=== PATIENT | female | born 1940 | race Caucasian/White ===

== ENCOUNTER 2017-06-10 08:02 | Outpatient (CLI) | payer MEDICARE ==
--- NOTE | 2017-06-10 15:13 | NM ---
NUCLEAR MEDICINE PARATHYROID SCAN NUCLEAR MEDICINE PARATHYROID SPECT-CT FUSION: Date: 06/10/17 HISTORY: 77-year-old female with hyperparathyroidism. TECHNIQUE: 23.4 mCi technetium-99m sestamibi injected IV. Planar scintigraphic images obtained immediately and at 1 hour delay, in the anterior, right anterio r oblique, and left anterior oblique, views. Noncontrast CT also performed from skull base to upper mediastinum. Coronal, sagittal, and axial CT-SPECT perfusion performed. FINDINGS: There is an asymmetrical focus of sestamibi uptake noted on the immediate scintigraphic images, the 1 hour delayed scintigraphic images, and also on the SPECT-CT fusion images, at the right anterior p aratracheal region, inferior to the right lobe of the thyroid gland. It is difficult to identify a d efinite soft tissue density nodule on the CT images, but that could be because the nodule is very sm all and the CT spacial resolution is intrinsically low for this type of study. There is no other goo d candidate for parathyroid adenoma. IMPRESSION: A focus of sestamibi localization in the right anterior paratracheal region inferior to the right lo be of the thyroid gland, is a moderately good candidate for a parathyroid adenoma. POS: DESTINEE
== END 2017-06-10 08:03 | disposition home or self-care (01) ==
LOC: NM 08:02
PROVIDERS: ATTEND Family Medicine
DX: E21.3 Hyperparathyroidism, unspecified (principal); D35.1 Benign neoplasm of parathyroid gland
CPT/HCPCS: 78072; A9500

== ENCOUNTER 2017-07-04 14:39 | Day surgery (SDC) | payer MEDICARE ==
[2017-07-03 14:50] VITALS: BMI 37.4
[2017-07-04] MEDS ORDERED: Lidocaine 1% w/Epinephrine 1:200K 30 ML VIAL ONE (15:08)
[2017-07-04] MEDS ORDERED: Bacitracin Zinc Ointment 30 gm TUBE ONE (15:09)
[2017-07-04 15:33] LABS: #Basophils 0.1 thou/uL (0.0-0.2); #Eosinphils 0.3 thou/uL (0.0-0.7); #Lymphocytes 2.7 thou/uL (1.20-3.40); #Monocytes 0.9 thou/uL (0.11-0.59); #Neutrophils 7.2 thou/uL (1.40-6.50); %Eosinophils 2.5 % (0.0-10.0); %Lymphocytes 24.3 % (21.0-51.0); %Monocytes 8.1 % (0.0-10.0); Hematocrit 48.2 % (36.0-47.0); Mean Platelet Volume 8.8 fL (7.4-10.4); Red Blood Cell (RBC) Count 4.94 mill/uL (4.20-5.40); White Blood Cell (WBC) Count 11.3 thou/uL (4.8-10.8)
[2017-07-04] MEDS ORDERED: Fentanyl 100 MCG/2 ML VIAL ONE ×2 (15:42→17:22)
[2017-07-04 15:47] LABS: Anion Gap 16 mmol/L (10-20); BUN (Urea Nitrogen) 18 mg/dL (9.8-20.1); Calc. Creatinine Clearance 85 mL/min (70-130); Calcium 10.8 mg/dL (7.8-10.44); Carbon Dioxide 25 mmol/L (23-31); Chloride 103 mmol/L (98-107); Estimated GFR-MDRD 65
[2017-07-04] MEDS ORDERED: Succinylcholine Chloride 20 MG/ML 10 ml SYRINGE FS ONE (15:48)
[2017-07-04] MEDS ORDERED: Lidocaine 2% PF 10 ML AMP (For Epidural Use) ONE (15:48)
[2017-07-04] MEDS ORDERED: ePHEDrine/0.9% NaCl/PF SYRINGE 50 mg/10 ml ONE (15:48)
[2017-07-04] MEDS ORDERED: Propofol 200 MG/20 ML VIAL ONE ×2 (15:48)
[2017-07-04] MEDS ORDERED: PHENYLEPHRINE-NS 100 MCG/ML 10 ML SYRINGE ONE (15:48)
[2017-07-04] MEDS ORDERED: Dexamethasone 20 MG/5 ML VIAL ONE (15:48)
[2017-07-04] MEDS ORDERED: Phenylephrine 10 MG/NS 250 ML 0 ML ONE (16:03)
[2017-07-04] MEDS ORDERED: Phenylephrine 10 MG/NS 250 ML 250 ML ONE (16:04)
[2017-07-04] MEDS ORDERED: HYDROcodone/Acetaminophen 5/325 mg Tablet ONE (18:57)
--- NOTE | 2017-07-04 21:56 | OP ---
PREOPERATIVE DIAGNOSES: Primary hyperparathyroidism. POSTOPERATIVE DIAGNOSES: Primary hyperparathyroidism. PROCEDURE PERFORMED: Right neck exploration with excision of parathyroid adenoma. PROCEDURE IN DETAIL: After consent was obtained, the patient was identified, brought to the operatin g room and placed on the operating table in supine position. General endotracheal anesthesia was obt ained with a nerve integrity monitor and the patient was positioned for surgery. The neck was extend ed and prepped and draped and infiltrated with 1% lidocaine and 1:100,000 epinephrine into a natural skin crease in the lower neck. We then made an incision through the skin and subcutaneous tissues do wn through the platysma and subplatysmal flaps were elevated. Bleeding points were identified and ca uterized and 2 blood vessels were suture ligated. We then dissected in the midline and we were able to separate the strap muscles. Then we encountered a large anterior thyroid vessel which was suture ligated. This then allowed for identification of thyroid and removal of the strap muscles. We crystal nued dissection laterally around the capsule until and retracted the great vessels and muscles while mobilizing the thyroid medially. This then allowed for easy identification of parathyroid adenoma wh ich was removed in a hemostatic fashion, sent for histologic evaluation and found to be consistent wi th parathyroid adenoma and consistent with the one which we identified with preoperative imaging. He mostasis was then obtained. Fibrillar Surgicel put in the deep aspect of the wound. The wound was c losed in layers with the platysma, reapproximated followed by the subcutaneous tissues and skin. Mike rile dressing was applied. The patient was awakened and taken to recovery room where she remained in stable condition prior to discharge home.
--- NOTE | 2017-07-06 10:01 | EKG ---
Test Reason : Blood Pressure : / mmHG Vent. Rate : 070 BPM Atrial Rate : 070 BPM P-R Int : 140 ms QRS Dur : 122 ms QT Int : 430 ms P-R-T Axes : -27 098 -64 degrees QTc Int : 464 ms Electronic ventricular pacemaker When compared with ECG of 31-MAR-2016 06:46, Vent. rate has decreased BY 5 BPM Confirmed by SHALA BATISTA, DR. Sumner ([id number]) on 07/06/2017 10:01:04 AM Referred By: SHILO Confirmed By:DR. Taisha LAST MD
== END 2017-07-04 19:35 | disposition home or self-care (01) ==
LOC: SDC 14:39
PROVIDERS: ATTEND Specialist
PROC: 0GTN0ZZ Resection of Right Inferior Parathyroid Gland, Open Approach (ICD-10-PCS; principal; 2017-07-04)
DX: D35.1 Benign neoplasm of parathyroid gland (principal); Z88.8 Allergy status to other drugs, medicaments and biological substances; Z90.710 Acquired absence of both cervix and uterus; Z90.49 Acquired absence of other specified parts of digestive tract; Z96.653 Presence of artificial knee joint, bilateral; Z98.890 Other specified postprocedural states
CPT/HCPCS: 80048; 85025; 88305; 88331; 88334; 93005; 93010; 96374; J1100; J2001; J2704; J3010

== ENCOUNTER 2017-08-29 08:00 | Outpatient (CLI) | payer MEDICARE ==
[2017-08-29] MEDS ORDERED: Iopamidol 370 76% 100 ML VIAL ONE (11:56)
== END 2017-08-29 08:01 | disposition home or self-care (01) ==
LOC: BICCT 08:00
PROVIDERS: ATTEND Specialist
DX: E21.3 Hyperparathyroidism, unspecified (principal)
CPT/HCPCS: 70492

== ENCOUNTER 2017-10-01 07:25 | Outpatient (CLI) | payer MEDICARE ==
--- NOTE | 2017-10-01 12:22 | NM ---
RADIONUCLIDE PARATHYROID SCAN WITH SPECT CT: HISTORY: The patient had surgery for a right-sided parathyroid adenoma in June 2017. The pt returns with elevated calcium levels and elevated parathyroid hormone levels. RADIOPHARMACEUTICAL: 27 mCi Technetium 99m-sestamibi injected intravenously. FINDINGS: There is physiologic activity in the salivary glands and the thyroid gland. No abnormal foci of pers istently increased uptake is seen in the neck or chest to suggest parathyroid adenoma. IMPRESSION: No scintigraphic evidence of parathyroid adenoma. POS: DESTINEE
== END 2017-10-01 07:26 | disposition home or self-care (01) ==
LOC: NM 07:25
PROVIDERS: ATTEND Specialist
DX: D35.1 Benign neoplasm of parathyroid gland (principal)
CPT/HCPCS: 78072; A9500

== ENCOUNTER 2017-12-04 09:39 | Outpatient (CLI) | payer MEDICARE ==
--- NOTE | 2017-12-10 12:22 | PFT ---
PATIENT HISTORY: HEIGHT: 65 IN WEIGHT:222 SMOKER: YES HOW LONG: PACKS PER DAY PRODUCTIVE COUGH: OCC LUNG DISEASE: PHYSICIAN INTERPRETATION FINAL REPORT:Director Trial comments patient and good effort and cooperation FVC 1.69 (62%), FEV1 of 1.45 (77%), FEV1/FVC 0.86. TLC 3.09 (64%), RV 1.35 (65%). Diffusion 11.06 (65%). There is a symmetric reduction to both the FEV1 and the FVC, suggestive of a restrictive profile. There is a near significant improvement in the FEV1 following bronchodilator. Total lung capacity and residual volume are mildly reduced. Diffusion capacity is mildly impaired, but easily corrects for alveolar ventilation. IMPRESSION: These pulmonary function studies are most consistent with moderate restrictive lung disease with near significant improvement following bronchodilator, and minimal impairment and gas exchange. Body habitus, in part, may be contributing to the volume restriction. Clinical and radiographic correlation should be considered for interstitial process. No priors for comparison. Director Trial: LETY Vocational Nurse Lvn: LETY BAUTISTA
== END 2017-12-04 09:40 | disposition home or self-care (01) ==
LOC: CP 09:39
PROVIDERS: ATTEND Family Medicine
DX: R09.02 Hypoxemia (principal)
CPT/HCPCS: 94060; 94727; 94729

== ENCOUNTER 2018-06-05 13:16 | Emergency (ER) | payer MEDICARE ==
[2018-06-05] MEDS ORDERED: Lidocaine 1% w/Epinephrine 1:100K 20 ML VIAL ONE (14:01)
[2018-06-05] MEDS ORDERED: Bacitracin Zinc 1 Packet ONE (14:20)
== END 2018-06-05 15:02 | disposition home or self-care (01) ==
LOC: ERS 13:16
DX: L02.414 Cutaneous abscess of left upper limb (principal); L03.114 Cellulitis of left upper limb; F32.9 Major depressive disorder, single episode, unspecified; E78.5 Hyperlipidemia, unspecified; E03.9 Hypothyroidism, unspecified; I50.9 Heart failure, unspecified; Z79.899 Other long term (current) drug therapy; Z79.891 Long term (current) use of opiate analgesic
CPT/HCPCS: 23930; J2001

== ENCOUNTER 2019-02-06 13:05 | Outpatient (CLI) | payer MEDICARE ==
[~2019-02-06 13:05] MED LIST: Iopamidol 370 76% 100 ML VIAL ONE
--- NOTE | 2019-02-06 15:39 | CT ---
CT NECK WITH AND WITHOUT CONTRAST: (parathyroid protocol) DATE: 02/06/2019. HISTORY: An 79-year-old female with recurrent hyperparathyroidism after surgical resection of right parathyroi d adenoma in June 2017. TECHNIQUE: Precontrast scan, 25 second postcontrast scan, and 65 second postcontrast scan, performed from a few centimeters inferior to the javed to the skull base. Coronal and sagittal reconstructions. FINDINGS: The images are degraded by patient breathing motion. Also, the patient's positioning is suboptimal, because of patient's condition. There is a 1.2 x 0.8 cm noncalcified pulmonary nodule located in the superior segment of the right lo wer lobe. This was not present at the lung bases as seen on CT abdomen and pelvis of 10/02/2011 (this should not be mistaken for the calcified granuloma abutting the posterior pleural surface in the rig ht lower lobe, which is visualized on both the 2011 [address] and the current CT at the same level as the ne w nodule). There is cardiomegaly. As mentioned on the 08/29/[address] of the neck, there is m ildly prominent soft tissue density material at the left anterior paratracheal region which enhances heterogeneously strongly in a lace-like manner (probably multiple prominent blood vessels) on the 25 second postcontrast scan. This has not significantly changed in size compared to 08/29/2017, and is a poor candidate for parathyroid adenoma. Again, it is noted that the small amount of bilateral paratracheal tissue that are present in the exp ected location of the thyroid gland, is not high in density on the noncontrast scan (little or no int rinsic iodine content). It is uncertain whether this represents an atrophic thyroid gland or not. T he previously mentioned tiny nubbin of enhancement abutting the left posterolateral aspect of the cri copharyngeus/pharyngeal constrictor complex, is again visualized. This has the appearance of small b lood vessels. 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 Left subclavian AICD. Cardiomegaly. Ectasia, tortuosity, of great vessels arisin g from aortic arch. IMPRESSION: 1. A new right lower lobe pulmonary nodule. Recommend further evaluation with PET scan to rule out malignancy. 2. No good candidate for parathyroid adenoma. 3. The findings in the neck are very similar to those of 08/29/2017. Please see that prior report. POS: TPC
== END 2019-02-06 13:06 | disposition home or self-care (01) ==
LOC: BICCT 13:05
PROVIDERS: ATTEND Specialist
DX: D35.1 Benign neoplasm of parathyroid gland (principal); R91.1 Solitary pulmonary nodule
CPT/HCPCS: 70492; 82565; Q9967

== ENCOUNTER 2019-04-10 18:58 | Emergency (ER) | payer MEDICARE ==
[2019-04-10 19:31] LABS: #Basophils 0.1 thou/uL (0.0-0.2); #Eosinphils 0.2 thou/uL (0.0-0.7); #Lymphocytes 2.5 thou/uL (1.20-3.40); #Neutrophils 7.7 thou/uL (1.40-6.50); %Basophils 1.1 % (0.0-1.0); %Eosinophils 1.6 % (0.0-10.0); %Lymphocytes 21.4 % (21.0-51.0); %Monocytes 8.5 % (0.0-10.0); %Neutrophils 67.4 % (42.0-75.0); Hemoglobin 15.7 g/dL (12.0-16.0); Mean Corpuscular Volume 94.1 fL (78.0-98.0); Mean Platelet Volume 8.7 fL (7.4-10.4); Platelet Count 260 thou/uL (130-400); RBC Distribution Width 12.4 % (11.5-14.5); Red Blood Cell (RBC) Count 5.05 mill/uL (4.20-5.40); White Blood Cell (WBC) Count 11.4 thou/uL (4.8-10.8)
[2019-04-10 19:51] LABS: ALT (SGPT) 13 U/L (8-55); AST (SGOT) 20 U/L (5-34); Albumin 4.1 g/dL (3.4-4.8); Alkaline Phosphatase 77 U/L (40-150); Anion Gap 15 mmol/L (10-20); BUN (Urea Nitrogen) 11 mg/dL (9.8-20.1); Bilirubin, Total 0.6 mg/dL (0.2-1.2); Calc. Creatinine Clearance 0 mL/min (70-130); Calcium 9.3 mg/dL (7.8-10.44); Carbon Dioxide 24 mmol/L (23-31); Chloride 95 mmol/L (98-107); Estimated GFR-MDRD 62; Globulin 2.6 g/dL (2.4-3.5); Glucose 114 mg/dL (83-110); Potassium 4.3 mmol/L (3.5-5.1); Protein, Total 6.7 g/dL (6.0-8.3); Sodium 130 mmol/L (136-145)
--- NOTE | 2019-04-10 20:29 | RAD ---
EXAM: CHEST ONE VIEW: 04/10/19 HISTORY: Fever. Decreased appetite. COMPARISON: 09/30/17. FINDINGS: Stable left sided transvenous defibrillator. Enlarged cardiac silhouette and atherosclerosis of the a lisa. Lung volumes are diminished, likely due to poor inspiratory effort. Chronic changes, without co nsolidation or mass. No pneumothorax or osseous abnormalities. IMPRESSION: No acute cardiopulmonary process. POS: PPP
[2019-04-10 20:55] LABS: Bilirubin Negative (Negative); Blood, Urine Negative (Negative); Clarity Turbid (Clear); Glucose, Urine (Dipstick) Normal (Negative); Leukocyte 500 Leu/uL (Negative); Mucous/LPF Rare LPF (<2+); Nitrite Negative (Negative); Protein, Urine (Dipstick) 10 mg/dL (Neg-Trace); RBC/HPF 0-3 HPF (0-3); WBC/HPF Greater than 50 HPF (0-3)
[2019-04-10 21:01] LABS: Bacteria/HPF 2+ HPF (None Seen)
[2019-04-10 21:05] LABS: Free T4 (Free Thyroxine) 1.35 ng/dL (0.70-1.48); Thyroid Stimulating Hormone 0.093 uIU/mL (0.35-4.94)
[2019-04-10] MEDS ORDERED: cefTRIAXone\\ROCEPHIN 2 GM VIAL ONE (21:54)
== END 2019-04-10 21:55 | disposition home or self-care (01) ==
LOC: ERS 18:58
DX: N39.0 Urinary tract infection, site not specified (principal); I50.9 Heart failure, unspecified; E03.9 Hypothyroidism, unspecified; E78.5 Hyperlipidemia, unspecified; E78.00 Pure hypercholesterolemia, unspecified; F32.9 Major depressive disorder, single episode, unspecified; Z79.899 Other long term (current) drug therapy
CPT/HCPCS: 36415; 71045; 80053; 81003; 81015; 83605; 83735; 84439; 84443; 85025; 87040; 87086; 87149; 93005; 96361; 96365; J0696

== ENCOUNTER 2019-04-18 09:03 | Inpatient (IN) | payer MEDICARE ==
--- NOTE | 2019-04-18 10:06 | RAD ---
Exam: Chest one view portable: HISTORY: Cough COMPARISON: 04/10/2019 FINDINGS: Left ICD. Minimal cardiomegaly. 0.9 cm diameter nodular density overlying the right mid and lower leo g zone not seen on old studies dating back to 2016, possibly a pulmonary nodule, consider nonemergent follow-up chest CT scan for further assessment. IMPRESSION: 0.9 cm diameter possible nodule in the right mid and lower lung zone. Follow-up as above. Stable cardiomegaly. Stable atherosclerosis of the aorta. Left transvenous pacemaker-defibrillator. Code lung nodule
[2019-04-18 10:15] LABS: #Basophils 0.1 thou/uL (0.0-0.2); #Eosinphils 0.1 thou/uL (0.0-0.7); #Lymphocytes 2.2 thou/uL (1.20-3.40); #Monocytes 0.9 thou/uL (0.11-0.59); #Neutrophils 5.2 thou/uL (1.40-6.50); %Basophils 0.8 % (0.0-1.0); %Eosinophils 1.2 % (0.0-10.0); %Lymphocytes 25.8 % (21.0-51.0); %Monocytes 10.9 % (0.0-10.0); %Neutrophils 61.3 % (42.0-75.0); Hemoglobin 15.3 g/dL (12.0-16.0); Mean Corpuscular Hemoglobin 31.2 pg (27.0-31.0); Mean Corpuscular Volume 94.5 fL (78.0-98.0); Mean Platelet Volume 8.8 fL (7.4-10.4); Platelet Count 204 thou/uL (130-400); RBC Distribution Width 12.2 % (11.5-14.5); Red Blood Cell (RBC) Count 4.92 mill/uL (4.20-5.40); White Blood Cell (WBC) Count 8.5 thou/uL (4.8-10.8)
[2019-04-18 10:36] LABS: ALT (SGPT) 10 U/L (8-55); AST (SGOT) 15 U/L (5-34); Albumin 3.9 g/dL (3.4-4.8); Alkaline Phosphatase 62 U/L (40-150); Anion Gap 13 mmol/L (10-20); BUN (Urea Nitrogen) 12 mg/dL (9.8-20.1); Bilirubin, Total 0.6 mg/dL (0.2-1.2); Calc. Creatinine Clearance 0 mL/min (70-130); Calcium 8.8 mg/dL (7.8-10.44); Carbon Dioxide 24 mmol/L (23-31); Chloride 98 mmol/L (98-107); Estimated GFR-MDRD 80; Globulin 2.2 g/dL (2.4-3.5); Glucose 90 mg/dL (83-110); Potassium 3.7 mmol/L (3.5-5.1); Protein, Total 6.1 g/dL (6.0-8.3); Sodium 131 mmol/L (136-145)
[2019-04-18 10:41] LABS: Bilirubin Negative (Negative); Blood, Urine Negative (Negative); Clarity Clear (Clear); Glucose, Urine (Dipstick) Normal (Negative); Leukocyte 250 Leu/uL (Negative); Nitrite Negative (Negative); Protein, Urine (Dipstick) Negative (Neg-Trace); Transitional Epithelial 0-3 HPF (None Seen); Urobilinogen 3 mg/dL (Less than 2)
[2019-04-18 10:42] LABS: Bacteria/HPF 1+ HPF (None Seen)
[2019-04-18] MEDS ORDERED: Ondansetron PF 4 MG/2 ML Vial ONE (11:32)
[2019-04-18 15:12] VITALS: BMI 35.9
[2019-04-18] MEDS ORDERED: Acetaminophen 325 MG TAB PO PRN (15:15)
[2019-04-18] MEDS ORDERED: Ondansetron PF 4 MG/2 ML Vial IVP PRN (15:15)
[2019-04-18] MEDS ORDERED: Ondansetron ODT 4 MG TAB SL PRN (15:15)
--- NOTE | 2019-04-18 17:30 | CON ---
DATE OF CONSULTATION: HISTORY OF PRESENT ILLNESS: An 79-year-old woman, who presents for evaluation of sepsis. The patient has a history of a cardiomyopathy. She has previously had placement of automatic implantable cardiac defibrillator. The patient was in her usual state of health, but recently developed fevers and chills. She was diagnosed with urinary tract infection. The patient presents with recurrent fever and chills. PAST MEDICAL HISTORY: 1. Cardiomyopathy. 2. Restrictive lung disease. 3. GE reflux. 4. Thyroid disorder. PAST SURGICAL HISTORY: Hysterectomy, venous stripping, appendectomy, and knee surgery. MEDICATIONS: See nursing list. ALLERGIES: FOSAMAX. SOCIAL HISTORY: Nonsmoker. FAMILY HISTORY: No strong family history of heart disease. PHYSICAL EXAMINATION: GENERAL: This is a well developed woman, in no acute distress. VITAL SIGNS: Blood pressure 145/80, heart rate was 80, temperature is 98. NECK: No jugular venous distention. LUNGS: Clear to auscultation. HEART: Regular rate and rhythm. Normal S1 and S2 with a 2/6 systolic murmur. ABDOMEN: Nondistended. EXTREMITIES: Showed no edema. LABORATORY RESULTS: White blood cell count 8.5, hemoglobin 15.3, hematocrit 46.5, platelets 204. Sodium is 131, potassium 3.7, chloride 98, bicarbonate 24, BUN 12, creatinine 0.7. Urinalysis revealed 11 to 20 white blood cell count per high-powered field with positive leukocyte esterase. Her urine culture revealed Streptococcus. The blood culture revealed gram-negative Staphylococcus. IMPRESSION: 1. Sepsis secondary to Staphylococcus. 2. History of AICD placement. 3. History of cardiomyopathy. 4. Thyroid disorder. This patient has gram-negative sepsis due to Staphylococcus. A transesophageal echocardiogram would be obtained to see if there is evidence of infection on the defibrillator or on the cardiac valves. PLAN: 1. Proceed with DANIELA. 2. Continue IV antibiotics per Infectious Disease. Job ID: [id number] [facility]
[2019-04-18] MEDS: Pregabalin 75 MG CAP PO SCH (22:10)
[2019-04-18] MEDS: Rosuvastatin 20 MG TAB PO SCH (22:10)
[2019-04-18] MEDS: HYDROcodone/Acetaminophen 10/325 mg Tablet PO PRN (22:11)
[2019-04-18] MEDS: Carvedilol 3.125 MG TAB PO SCH (22:11)
--- NOTE | 2019-04-19 00:38 | HP ---
CHIEF COMPLAINT: Fever and weakness. HISTORY OF PRESENT ILLNESS: This is an 79-year-old female patient with a history of chronic back pain, COPD, cardiomyopathy, chronic pain, status post AICD placement in 2014, and status post parathyroidectomy in 2017, who presents to the emergency department with complaints of persistent fever, chills, and weakness. The patient first presented to the emergency department 3-4 days ago with fevers and chills. She was treated for urinary tract infection with oral Keflex. She seemed to improve somewhat, but then continued to have on and off fevers and chills. The daughter states that she developed some nausea and vomiting today and increased weakness, re-presented back to the emergency department for further evaluation. Upon review of her results from the emergency room visit on the , she was found to have 2 out of 2 positive blood cultures with coag-negative staphylococcus with presumptive corynebacterium species. It was thought to be a contaminant, which is most usual. ER physician spoke with Dr. Mckeon, who is suspicious for possible endocarditis due to her indwelling hardware with her AICD. She is now being admitted for further evaluation including a transesophageal echocardiogram to rule out endocarditis. She has continued to have on and off fevers, but feeling much better now with better fever control. PAST MEDICAL HISTORY: Again, chronic back pain, status post herniated disk of L2-L3, she is followed by Dr. Matthews; chronic arthritis; hypothyroidism; history of hyperparathyroidism; COPD; osteopenia; vitamin D deficiency; ischemic cardiomyopathy with ejection fraction of 20% to 25%; history of paroxysmal atrial fibrillation; stage 3 chronic renal failure. MEDICATIONS: Include; 1. [place] 10/325 b.i.d. p.r.n. severe pain. 2. Lyrica 150 mg at bedtime. 3. Iron sulfate 325 daily. 4. Potassium daily. 5. Albuterol p.r.n. 6. Celebrex 200 mg once a day p.r.n. 7. Symbicort 160/4.5 twice a day. 8. Protonix 40 mg daily. 9. Citalopram 40 mg daily. 10. Carvedilol 3.125 mg b.i.d. 11. Synthroid 150 mcg daily. 12. Crestor 20 mg daily. 13. Vitamin D3, 2000 units daily. ALLERGIES: TO FOSAMAX. IMMUNIZATIONS: Up to date with Prevnar in 2014 and Pneumovax in 2017. Last flu shot was 2018. PAST SURGICAL HISTORY: Parathyroidectomy in June 2017, vaginal hysterectomy in 1969, cholecystectomy in 1987, small bowel bypass and gastrectomy in 1996, colonoscopy in 2005, right knee replacement in 2007, EGD in 2011, AICD placement in 2014. FAMILY HISTORY: Father with cancer. Mother with cancer. No heart disease. No diabetes. SOCIAL HISTORY: She is single. She lives with her daughter at home. No smoking. No alcohol. No other drug use. REVIEW OF SYSTEMS: As per the history of present illness. CONSTITUTIONAL: She denies any upper respiratory symptoms. Positive fevers on and off. Denies headache or visual or hearing changes. CARDIAC: Denies chest pain, shortness of breath, or palpitations. PULMONARY: Denies cough or shortness of breath. GI: Some nausea and vomiting. No diarrhea. Denies melena or hematochezia. : Positive recent urinary tract infection, but does not have any dysuria or hematuria. NEUROLOGIC: Positive weakness. No seizures or syncope. MUSCULOSKELETAL: Chronic pain. She walks with a walker. She does have assistance at home from her daughter. PHYSICAL EXAMINATION: VITAL SIGNS: Temperature 98, pulse of 80, respirations 20, blood pressure 145/ 80, pulse ox is 94% on room air. GENERAL: She is obese, in no acute distress. SKIN: No rashes seen, chronic skin changes; no splinter hemorrhages of nails HEENT: Mucosa is moist. NECK: Supple. No JVD, adenopathy, or bruits. HEART: Regular rate and rhythm with 2/6 systolic ejection murmur, loudest at the left sternal border. LUNGS: Clear bilaterally. ABDOMEN: Obese, soft, nontender, and nondistended. No hepatosplenomegaly. No CVA tenderness. EXTREMITIES: Trace edema. 2+ peripheral pulses bilaterally. LABORATORY DATA: White blood cell count 8.5, hemoglobin and hematocrit 15.3 and 46.5, platelets 204. Sodium 131, potassium 3.7, chloride 98, CO2 of 24, BUN and creatinine 12 and 0.70. Serum glucose is 70. AST and ALT are normal. Albumin is 3.9. Urinalysis positive for epithelial cells, positive leukocytes, positive red blood cells and white blood cells, 1+ bacteriuria. Chest x-ray showed no active disease, left ICD is noted, minimal cardiomegaly, 0.9 cm nodular density in the right mid lower lung zone, possible pulmonary nodule. ASSESSMENT AND PLAN: This is an 79-year-old female patient with multiple medical problems, now with persistent fever, positive blood cultures, presumed to be contaminant, but with the placement of her cardiac hardware, may be suspicious for endocarditis. 1. Rule out endocarditis. Dr. Mello has seen the patient, has planned for a DANIELA when able. 2. Fevers with coag-negative Staph bacteremia, has been treated with oral antibiotics. Await Dr. Mckeon evaluation for further IV antibiotics now. We are awaiting for the DANIELA to result. 3. History of cardiomyopathy. We will continue her outpatient medications for blood pressure control. 4. Hypothyroidism. Continue her thyroid replacement. 5. Gastrointestinal protection. We will continue proton pump inhibitor. 6. Deep vein thrombosis prophylaxis with subcu Lovenox. 7. Code status. Patient and daughter desire her to be full code. Job ID: [id number] [facility]
[2019-04-19 05:05] LABS: #Basophils 0.1 thou/uL (0.0-0.2); #Eosinphils 0.1 thou/uL (0.0-0.7); #Lymphocytes 1.8 thou/uL (1.20-3.40); #Monocytes 0.8 thou/uL (0.11-0.59); #Neutrophils 7.8 thou/uL (1.40-6.50); %Basophils 0.8 % (0.0-1.0); %Eosinophils 1.1 % (0.0-10.0); %Lymphocytes 16.7 % (21.0-51.0); %Monocytes 7.8 % (0.0-10.0); %Neutrophils 73.6 % (42.0-75.0); Hemoglobin 15.3 g/dL (12.0-16.0); Mean Corpuscular HGB CONC 32.7 g/dL (32.0-36.0); Mean Corpuscular Hemoglobin 31.2 pg (27.0-31.0); Mean Corpuscular Volume 95.4 fL (78.0-98.0); Platelet Count 197 thou/uL (130-400); RBC Distribution Width 12.4 % (11.5-14.5); Red Blood Cell (RBC) Count 4.91 mill/uL (4.20-5.40); White Blood Cell (WBC) Count 10.6 thou/uL (4.8-10.8)
[2019-04-19 05:30] LABS: Anion Gap 14 mmol/L (10-20); BUN (Urea Nitrogen) 14 mg/dL (9.8-20.1); Calc. Creatinine Clearance 88 mL/min (70-130); Calcium 9.2 mg/dL (7.8-10.44); Carbon Dioxide 25 mmol/L (23-31); Chloride 99 mmol/L (98-107); Estimated GFR-MDRD 74; Glucose 109 mg/dL (83-110); Potassium 3.7 mmol/L (3.5-5.1); Sodium 134 mmol/L (136-145)
[2019-04-19] MEDS: Levothyroxine Sodium 125 MCG TAB PO SCH (06:22)
[2019-04-19] MEDS ORDERED: Ondansetron ORAL SOLN. 4 MG/5 ML UDCUP PO PRN (07:46)
[2019-04-19] MEDS ORDERED: Acetaminophen 325 MG TAB PO PRN (07:46)
--- NOTE | 2019-04-19 08:38 | PRG ---
DATE OF SERVICE: 04/19/2019 SUBJECTIVE: The patient states that she is feeling some better. She has had no fever since being in. Denies chest pain. Denies nausea or vomiting. Continues to feel weak, but no fevers or chills. Pain is controlled. OBJECTIVE: VITAL SIGNS: Temperature 97.9, pulse 78, respirations 16, blood pressure 115/82, pulse ox 93% on room air. GENERAL: She is awake and alert, in no acute distress. HEENT: Mucosa is moist. NECK: Supple. HEART: Regular rate and rhythm with 2/6 systolic ejection murmur. LUNGS: Clear. ABDOMEN: Obese and soft. EXTREMITIES: With no edema. 2+ peripheral pulses bilaterally. LABORATORY DATA: White blood cell count 10.6, hemoglobin and hematocrit 15.3 and 46.8, platelets of 197. Sodium 134, potassium 3.7, chloride 99, CO2 of 25, BUN and creatinine 14 and 0.75, serum glucose of 109. Urinalysis as reviewed from yesterday. Blood cultures x4, showing no growth less than 24 hours. ASSESSMENT AND PLAN: 1. This is an 79-year-old female with persistent fever and 2/2 positive blood cultures with gram-negative Staphylococcus, presumptive Corynebacterium. The patient is seen by Dr. Mello and discussed with Dr. Mckeon for possible endocarditis. Awaiting DANIELA to better elucidate her valves. Continue to monitor. The patient appears to be stable. 2. Deconditioning. We will consult PT. 3. History of cardiomyopathy. Continue outpatient medications for blood pressure control. 4. Nonischemic cardiomyopathy. The patient with implanted defibrillator. 5. Hypothyroidism, stable. 6. Continue deep vein thrombosis prophylaxis. Job ID: [id number]
[2019-04-19] MEDS: Pregabalin 75 MG CAP PO SCH ×2 (08:49→20:02)
[2019-04-19] MEDS: CeleCOXIB 100 MG CAP PO SCH (08:50)
[2019-04-19] MEDS: Carvedilol 3.125 MG TAB PO SCH ×2 (08:51→20:03)
[2019-04-19] MEDS: Citalopram 20 MG TAB PO SCH (08:51)
[2019-04-19] MEDS: Multivit, Therapeutic 1 TAB PO SCH (08:51)
[2019-04-19] MEDS: Enoxaparin Sodium 40 MG/0.4 ML SYRINGE SC SCH (08:52)
[2019-04-19] MEDS: HYDROcodone/Acetaminophen 10/325 mg Tablet PO PRN ×2 (09:48→20:01)
[2019-04-19] MEDS: Rosuvastatin 20 MG TAB PO SCH (20:03)
--- NOTE | 2019-04-19 22:22 | CON ---
DATE OF CONSULTATION: 04/19/2019 REASON FOR CONSULTATION: Fevers. HISTORY OF PRESENT ILLNESS: This is an 79-year-old with history of COPD, CHF with AICD in place a few years ago, who for the past 3 weeks has had recurrent episodes of fever up to 102 and was given antimicrobial therapy with Keflex with some improvement, but still intermittent episodes of temperature elevation. She came back to the emergency room because of that, and because of concerns with her AICD and possibility of endocarditis, she was admitted. The patient had 2 sets of blood cultures positive for Corynebacterium and coagulase-negative Staph, which could represent either contamination or true infection with colonization of the leads of the AICD. Beyond that, the patient has had some issues with her voiding capacity, but no obvious dysuria. She has chronic low back pain, which is unchanged from previous. She has chronic pain in the right and left TKR sites, which are unchanged from prior symptoms. No headaches. No visual symptoms, sore throat, odynophagia or dysphagia. Some loose stool intermittently. No dyspnea. No cough or sputum production. No other joint pain outside the areas that were mentioned above. PAST MEDICAL HISTORY: COPD, chronic back pain, herniated disk, bilateral TKRs, ischemic cardiomyopathy with EF of 20% with AICD in place, and AFib. PAST SURGICAL HISTORY: She had a surgery for gastric ulcer many years ago, reportedly had resection of part of her stomach, cholecystectomy, parathyroidectomy, and vaginal hysterectomy. ALLERGIES: FOSAMAX. FAMILY HISTORY: Some form of cancer. No other abnormalities. SOCIAL HISTORY: Never smoker. Lives with daughter outside the [facility]. CURRENT MEDICATIONS: 1. [place]. 2. Coreg. 3. Celebrex. 4. Celexa. 5. Lovenox. 6. Feosol. 7. Synthroid. 8. Theragran. 9. Protonix. 10. Lyrica. 11. Crestor. PHYSICAL EXAMINATION: VITAL SIGNS: T-max 99.2, blood pressure 92/50, pulse 70, respirations 16, and O2 sat 90% to 93%. SKIN: Normal. AICD site appears normal. Peripheral IV access and she is voiding in the toilet. No lymphadenopathy. HEENT: Ocular movements conjugate. Sclerae white. Pupils are equal. Oral cavity with numerous missing teeth, remainder ones with severe decay and gum disease. NECK: Supple. No jugular venous distention or carotid bruits. LUNGS: Symmetric, clear breath sounds. HEART: S1 and S2 with diminished heart sounds. No obvious murmurs. ABDOMEN: Soft. No organomegaly. No ascites. No bladder distention. EXTREMITIES: Knees are tender, but no evidence of swelling, erythema or fluid. Pulses 1+ in dorsalis pedis, moves extremities with no limitations except for the chronic pain in the right and left TKR sites. Cognitive function appears to be intact. LABORATORY DATA: White cell count 8.5 and 10.6, hemoglobin is normal, platelets are normal, and differential was normal as well. Sodium 131 and creatinine 0.7. Liver profile normal. Globulin 2.2. Urinalysis, 11 to 20 wbc's. Urine culture with gram-negative rods, isolated, yet to be identified. Susceptibility tested and we have 4 sets of blood cultures pending. Chest x-ray with 0.9-cm possible nodule in right mid-lower lung zone. ASSESSMENT: 1. Ischemic cardiomyopathy with automatic implantable cardioverter-defibrillator in place. 2. Recurrent fevers for the past 3 weeks with some weight loss. DISCUSSION: Differential diagnosis includes colonization of AICD leads, possible endocarditis. Invasive UTI is another possibility, but less likely. Malignancy is another possibility in view of the pulmonary nodule. We will order a CT of chest to evaluate that and because another alternate diagnosis would be hematogenous pneumonitis from the potential AICD lead colonization. Discontinue antimicrobial therapy and consider Karius test on Saturday depending on results of cultures. Job ID: [id number]
[2019-04-20] MEDS: Levothyroxine Sodium 125 MCG TAB PO SCH (05:28)
[2019-04-20] MEDS ORDERED: PROPOFOL 200 MG/20 ML VIAL ONE (07:39)
[2019-04-20] MEDS: HYDROcodone/Acetaminophen 10/325 mg Tablet PO PRN (09:36)
[2019-04-20] MEDS: Ferrous Sulfate 325 MG TAB PO SCH (09:37)
[2019-04-20] MEDS: Carvedilol 3.125 MG TAB PO SCH ×2 (09:37→19:49)
[2019-04-20] MEDS: Citalopram 20 MG TAB PO SCH (09:37)
[2019-04-20] MEDS: Multivit, Therapeutic 1 TAB PO SCH (09:37)
[2019-04-20] MEDS: CeleCOXIB 100 MG CAP PO SCH (09:37)
[2019-04-20] MEDS ORDERED: PROPOFOL 20 ML ONE (10:54)
--- NOTE | 2019-04-20 11:52 | PRG ---
DATE OF SERVICE: 04/20/2019 SUBJECTIVE: MS. Hyatt is resting well. She has no medical complaints. She is awaiting transesophageal echocardiogram. She has had a recent history of fever. She has an implantable defibrillator. OBJECTIVE: VITAL SIGNS: She is afebrile, blood pressure 101/58, and temperature 97.3. LUNGS: Clear. HEART: Reveals no murmur. IMPRESSION: Fever. PLAN: Await results of DANIELA. If DANIELA is normal, she possibly will be discharged home later today. Job ID: [id number]
[2019-04-20] MEDS: Pregabalin 75 MG CAP PO SCH ×2 (12:48→19:47)
[2019-04-20] MEDS: Enoxaparin Sodium 40 MG/0.4 ML SYRINGE SC SCH (12:48)
[2019-04-20] MEDS: Rosuvastatin 20 MG TAB PO SCH (19:48)
[2019-04-21] MEDS: Levothyroxine Sodium 125 MCG TAB PO SCH (05:43)
--- NOTE | 2019-04-21 08:46 | PRG ---
DATE OF SERVICE: 04/21/2019 SUBJECTIVE: The patient is feeling well. She denies any chest pain or shortness of breath. She is still fatigued. No noted fever. She tolerated the DANIELA. Awaiting final report. Appreciate Dr. Mckeon. OBJECTIVE: VITAL SIGNS: Temperature 97.4, pulse 72, respirations 18, blood pressure 111/59, pulse ox 93% on room air. GENERAL: She is awake and alert, in no acute distress. HEART: Regular rate and rhythm. LUNGS: Clear. ABDOMEN: Obese, soft, nontender, and nondistended. EXTREMITIES: With no edema. LABORATORY DATA: Nothing new from today. Again, final report of the DANIELA is pending. ASSESSMENT AND PLAN: This is an 79-year-old female patient with a history of cardiomyopathy, hypothyroidism, chronic pain, status post implanted pacemaker defibrillator, now with chronic and persistent fever. 1. Fever with 2/2 positive blood cultures. Awaiting final DANIELA. Further workup per Dr. Mckeon to rule out endocarditis or infected leads. May need to replace the leads. 2. Cardiomyopathy. Appreciate Cardiology monitoring. 3. Hypothyroidism is stable. 4. Deconditioning. Continue PT. 5. Infectious disease. Antibiotics as per Dr. Mckeon. Considering Karius test. 6. Pulmonary nodule. CT chest, we will check today. Job ID: [id number]
[2019-04-21] MEDS: Multivit, Therapeutic 1 TAB PO SCH (09:02)
[2019-04-21] MEDS: Pregabalin 75 MG CAP PO SCH ×2 (09:03→20:35)
[2019-04-21] MEDS: Citalopram 20 MG TAB PO SCH (09:03)
[2019-04-21] MEDS: CeleCOXIB 100 MG CAP PO SCH (09:03)
[2019-04-21] MEDS: Enoxaparin Sodium 40 MG/0.4 ML SYRINGE SC SCH (09:07)
--- NOTE | 2019-04-21 11:56 | CT ---
CT CHEST WITH CONTRAST: Date: 04/21/19 INDICATION: Evaluate pulmonary nodule. Reference made to CT images of 02/06/19. FINDINGS: The previously described right lower lobe pulmonary nodule is redemonstrated, measuring 7.0 x 9.0 mm, with a rounded, circumscribed morphology. Granulomatous calcification of the subpleura of the right lower lobe is present, posteromedially. There is scattered interstitial curvilinear density present b ilaterally, favoring areas of scarring. No effusion or pneumothorax. Scattered subpleural patchy and interstitial prominence with ground-glass reticular nodularity may relate to a component of interstit ial fibrosis. No thoracic adenopathy. Scattered vascular disease is present. There is cirrhotic morph ology of the incidentally imaged portions of the liver. IMPRESSION: 7 x 9 mm rounded circumscribed nodule of the right lower lobe. Recommend pulmonary medicine consultat ion for follow-up assessment. Additional details as described above. Recommend pulmonary medicine consultation. POS: [facility]PC
[2019-04-21] MEDS: Carvedilol 3.125 MG TAB PO SCH ×2 (12:53→20:34)
--- NOTE | 2019-04-21 15:02 | PQF ---
DATE: 04-21-19 ATTN: DR. JADE PAL Please exercise your independent, professional judgment in responding to the clarification form. Clinical indicators are provided on the bottom of this form for your review Please check appropriate box(s) to clarify if the following diagnosis has been ruled in or ruled out: SEPSIS [ ] Ruled in diagnosis [ ] Continue to treat [ ] Resolved [ xx ] Ruled out diagnosis [ ] Other diagnosis [ ] Unable to determine In addition, please specify: Present on Admission (POA): [ ] Yes [ ] No [ ] Unable to determine For continuity of documentation, please document condition throughout progress notes and discharge summary. Thank You. CLINICAL INDICATORS - SIGNS / SYMPTOMS / LABS: CONSULT NOTE DR. FUNG 04-16-19: WHO PRESENTS FOR EVAL OF SEPSIS, DIAGNOSED WITH UTI, IMPRESSION: SEPSIS 2/2 STAPHYLOCOCCUS ER 04-18-19: EVAL OF FEVER, TEMP: 101 TO 101.9, PT JUST COMPLETED COURSE OF KEFLEX FOR UTI, DX LAST WEEK. POSITIVE BLOOD CULTURE, FEVER FOR DIAGNOSIS H&P: 04-18-19: PRESENTS TO ED WITH C/O PERSISTENT FEVER, CHILLS AND WEAKNESS , FOUND TO HAVE 2 OF 2 POSITIVE BLOOD CULTURES WITH COAG-NEGATIVE STAPHYLOCOCCUS WITH PRESUMPTIVE CORYNEBACTERIUM SPECIES, RULE OUT ENDOCARDITIS TEMP: 04-19-19: 99.2 BP: 04-19-19: 90/53, 92/50, 86/52 04-20-19: 82/49, 76/45, 103/51 RISK FACTORS: H&P 04-18-19: DR. SEXTON SUSPICIOUS FOR POSSIBLE ENDOCARDITIS DUE TO HER INDWELLING HARDWARE WITH HER AICD. SHE IS NOW BEING ADMITTED FOR FURTHER EVAL INCLUDING A DANIELA TO R/O ENDOCARDITIS TREATMENTS: H&P 04-18-19: SHE IS NOW BEING ADMITTED FOR FURTHER EVAL INCLUDING A DANIELA TO R /O ENDOCARDITIS, HAS BEEN TREATED WITH ORAL ANTIBIOTICS, EVAL FOR FURTHER IV ANTIBIOTICS (This form is maintained as a part of the permanent medical record) 2014 [employer]. All Rights Reserved KEN [email or web address] Office: [phone] [facility]
[2019-04-21] MEDS ORDERED: Iopamidol 370 76% 100 ML VIAL ONE (15:24)
[2019-04-21 15:48] LABS: Ref Lab Test Ordered KARIUS; Reference Lab Name KARIUS
[2019-04-21] MEDS ORDERED: Sodium Chloride 0.9% 1,000 ML IV SCH (20:15)
[2019-04-21] MEDS: Rosuvastatin 20 MG TAB PO SCH (20:34)
[2019-04-21] MEDS: Vancomycin HCl 1.5 GM in Sodium Chloride 0.9% 250 ML 300 ML IVPB SCH (21:45)
[2019-04-22] MEDS: Levothyroxine Sodium 125 MCG TAB PO SCH (06:38)
[2019-04-22 07:33] LABS: #Eosinphils 0.1 thou/uL (0.0-0.7); #Lymphocytes 0.8 thou/uL (1.20-3.40); #Monocytes 0.5 thou/uL (0.11-0.59); #Neutrophils 4.1 thou/uL (1.40-6.50); %Basophils 0.3 % (0.0-1.0); %Lymphocytes 14.6 % (21.0-51.0); %Monocytes 9.6 % (0.0-10.0); %Neutrophils 73.5 % (42.0-75.0); Hemoglobin 13.1 g/dL (12.0-16.0); Mean Corpuscular HGB CONC 32.5 g/dL (32.0-36.0); Mean Corpuscular Hemoglobin 31.4 pg (27.0-31.0); Mean Corpuscular Volume 96.5 fL (78.0-98.0); Mean Platelet Volume 8.9 fL (7.4-10.4); Platelet Count 163 thou/uL (130-400); RBC Distribution Width 12.4 % (11.5-14.5); Red Blood Cell (RBC) Count 4.17 mill/uL (4.20-5.40); White Blood Cell (WBC) Count 5.5 thou/uL (4.8-10.8)
--- NOTE | 2019-04-22 07:35 | PRG ---
DATE OF SERVICE: 04/22/2019 SUBJECTIVE: The patient had episodes last night of being more lethargic. She had a hard time staying awake. The daughter reports that she would fall asleep during the conversation. She improved some with fluid bolus last night as well as placement of a Edis Hugger. She seems more at her baseline now. The daughter states that she did seem more lethargic after she has been lying in bed for long periods of time. OBJECTIVE: VITAL SIGNS: Temperature 97.5, pulse 76, respirations 16, blood pressure 142/63, and pulse ox is 94% on 3 L. GENERAL: She is awake and alert. No acute distress. Speech is clear. She appears comfortable. HEENT: Mucosa is moist. NECK: Supple. HEART: Regular rate and rhythm. LUNGS: Distant, but no wheeze, rales, or rhonchi. ABDOMEN: Soft, nontender, and nondistended. EXTREMITIES: With no edema. LABORATORY DATA: Pending. Karius test from Dr. Mckeon is pending at this time. ASSESSMENT AND PLAN: This is an 79-year-old female patient with history of cardiomyopathy, hypothyroidism, chronic pain, status post implanted pacemaker defibrillator, admitted with persistent fever. 1. Fever with 2/2 positive blood cultures. Awaiting final transesophageal echo report. Workup in progress with Dr. Mckeon. 2. Mental status change. We will check a CT brain. Due to episode of hypoxemia, I will check a repeat chest x-ray. 3. Cardiomyopathy. Continue plan as per Cardiology. 4. Hypothyroidism. We will repeat TSH due to episode of lethargy. 5. Abnormal CT chest with pulmonary nodule. We will consult Pulmonary as per Radiology recommendation as well as episode last night. 6. Deconditioning. We will continue PT and encourage her to be out of bed more during the daytime. Job ID: [id number]
--- NOTE | 2019-04-22 07:38 | CON ---
DATE OF CONSULTATION: 04/21/2019 HISTORY OF PRESENT ILLNESS: I am seeing Ms. Hyatt at our [facility] Heme-Onc [facility] as an Electrophysiology otm consultant. Her problems are; 1. Persistent bacteremia with coag-negative Staphylococcus and corynebacterium in April 07, 2019. 2. History of chronic systolic congestive heart failure. a. History of cardiomyopathy with LVEF 20% to 25%, nonischemic in the past. 3. History of left bundle-branch block. 4. This is a biventricular ICD implantation on 04/29/2015 with a [employer] device. 5. History of hypertension, dyslipidemia. ALLERGIES: NONE NOTED. MEDICATIONS: At home, included; 1. Pantoprazole. 2. Citalopram. 3. Hydrocodone. 4. Tylenol. 5. Carvedilol. 6. Levothyroxine. 7. Rosuvastatin. 8. Pregabalin. 9. Potassium. 10. Multivitamin. 11. Ferrous sulfate. 12. Cholecalciferol. 13. Celecoxib. SUBJECTIVE: Ms. Hyatt is admitted with symptoms of ongoing fevers, chills, weakness. She has been evaluated in the ER 2 to 4 days prior to current admission and treated for UTI with oral Keflex. She is somewhat improved, but then fever and chill recurred, also had some nausea and vomiting, further weakness. Eventually was admitted again on the . There are 2/2 positive blood cultures were seen for coag-negative Staphylococcus, presumed to be Corynebacterium at that time in the original ER visit a week ago. At that point, the assumption was made for possible contamination. Now with continued fevers. She was admitted for further evaluation. She underwent a DANIELA yesterday, demonstrating a 1.2 cm potential vegetation attached to the ICD leads. I was consulted for further management of the potentially infected lead. Currently, she is doing fair, antibiotics is now off and [employer] DNA test for pathogens is being performed. She was also found to have a pulmonary nodule, which was followed by a repeated CT. She denies dizziness or loss of consciousness. No stroke-like symptoms. More weakness and fatigue are seen. REVIEW OF SYSTEMS: The rest of 12-point review of system otherwise unremarkable. PAST MEDICAL HISTORY: As above. She has a history of chronic back pain, herniated disk in L2-L3, chronic arthritis, hypothyroidism, hyperparathyroidism, COPD, osteopenia, vitamin D deficiency, paroxysmal atrial fibrillation, and stage 3 kidney failure. PAST SURGICAL HISTORY: Significant for ICD implantation in 2015, parathyroidectomy in 2017. FAMILY HISTORY: Significant for cancer related of father and mother both. PHYSICAL EXAMINATION: VITAL SIGNS: Blood pressure is 111/59, heart rate 72, respirations 18, and temperature 97.4 degrees Fahrenheit. GENERAL: Alert and oriented woman, in no apparent distress. NECK: Supple. Jugular veins not distended. CHEST: Coarse without crackles. HEART: Sounds are regular to rate and rhythm. No murmur or gallop. ABDOMEN: Benign. Bowel sounds positive. EXTREMITIES: Lower extremities without edema, clubbing, or cyanosis. Pulses are adequate. NEUROLOGIC: The patient is nonfocal. MUSCULOSKELETAL: Without joint swelling or deformity. SKIN: Without rash. Precordial ICD insertion site is healed adequately. DIAGNOSTIC STUDIES: EKG reviewed, revealing sinus rhythm, ventricular pacing. LABORATORY DATA: White cell count 8.5 on the , 10.6 on the ; hemoglobin 15.3; platelet count is 204. Sodium 134, potassium 3.7, BUN is 12, creatinine 0.7. UA is positive. The blood cultures are positive from 04/10 for Corynebacterium subspecies of coag-negative Staphylococcus. Second set of blood cultures from 04/18, and third set as well is negative for 2 days so far and culture of 04/18 shows mixed skin and enteric sissy present. ASSESSMENT AND PLAN: Ms. Hyatt is a pleasant 79-year-old woman with history of congestive heart failure, nonischemic cardiomyopathy, paroxysmal atrial fibrillation, left bundle-branch block, and Bi-V ICD implantation in 2014, and now she is presenting with persistent bacteremia. The workup so far was significant for a small pulmonary nodule and DANIELA possibly with echodense structures attached to the leads suspicious of possible vegetation as per Dr. Mello's note. On the other hand, followup blood cultures are negative and her white cell counts are improving. Question remains whether the original positive blood cultures are contaminant or not. Dr. Mckeon follows and ordered a bacterial DNA screening test by name of Mehdi, and for this, she is off antibiotics currently. Naturally, if no obvious curable source of bacterial infection is present, we should have high suspicion for contamination and colonization of the ICD leads with bacteremia. Especially if antibiotic therapy is unsuccessful, ICD extraction is a potential possibility, which would likely be performed in [place] or [place]. Awaiting further recommendation from Dr. Mckeon, the ID physician will follow up with you. Thank you for allowing me to participate in the care of this patient. Job ID: [id number]
[2019-04-22 07:51] LABS: ALT (SGPT) 10 U/L (8-55); AST (SGOT) 15 U/L (5-34); Albumin 3.4 g/dL (3.4-4.8); Alkaline Phosphatase 60 U/L (40-150); Anion Gap 9 mmol/L (10-20); BUN (Urea Nitrogen) 13 mg/dL (9.8-20.1); Bilirubin, Total 0.3 mg/dL (0.2-1.2); Calc. Creatinine Clearance 107 mL/min (70-130); Calcium 9.1 mg/dL (7.8-10.44); Carbon Dioxide 28 mmol/L (23-31); Chloride 105 mmol/L (98-107); Estimated GFR-MDRD Greater than 90; Glucose 107 mg/dL (83-110); Potassium 4.7 mmol/L (3.5-5.1); Protein, Total 5.4 g/dL (6.0-8.3); Sodium 137 mmol/L (136-145)
--- NOTE | 2019-04-22 08:29 | RAD ---
EXAM: Single view of the chest HISTORY: Hypoxemia COMPARISON: None FINDINGS: Single view of the chest shows an enlarged but stable cardiomediastinal silhouette. The pa cemaker is unchanged in position. There is no evidence of consolidation, mass, or pleural effusion. The bones are unremarkable. IMPRESSION: Cardiomegaly without evidence of acute cardiopulmonary disease
[2019-04-22] MEDS: Citalopram 20 MG TAB PO SCH (09:31)
[2019-04-22] MEDS: CeleCOXIB 100 MG CAP PO SCH (09:32)
[2019-04-22] MEDS: Pregabalin 75 MG CAP PO SCH ×2 (09:32→20:00)
[2019-04-22] MEDS: Enoxaparin Sodium 40 MG/0.4 ML SYRINGE SC SCH (09:33)
[2019-04-22] MEDS: Ferrous Sulfate 325 MG TAB PO SCH (09:33)
[2019-04-22] MEDS: Carvedilol 3.125 MG TAB PO SCH ×2 (09:33→20:56)
[2019-04-22] MEDS: Multivit, Therapeutic 1 TAB PO SCH (09:34)
--- NOTE | 2019-04-22 10:25 | PQF ---
DATE: 04-22-19 ATTN: DR. JADE PAL Please exercise your independent, professional judgment in responding to the clarification form. Clinical indicators are provided on the bottom of this form for your review Please check appropriate box(s): [ ] Encephalopathy: Type: [ ] Acute [ ] Subacute [ ] Chronic Etiology: [ ] Metabolic [ ] Toxic [ ] Septic [ ] Other (please specify) [ xx ] Transient Alteration of Awareness [ ] Other diagnosis [ ] Unable to determine In addition, please specify: Present on Admission (POA): [ ] Yes [ xx ] No [ ] Unable to determine For continuity of documentation, please document condition throughout progress notes and discharge summary. Thank You. CLINICAL INDICATORS - SIGNS / SYMPTOMS / LABS: PN DR. PAL 04-22-19: HAD EPISODES LAST NIGHT OF BEING LETHARGIC, SHE HAD A HARD TIME STAYING AWAKE, MENTAL STATUS CHANGE CONSULT NOTE DR. FUNG 04-18-19: SEPSIS SECONDARY TO STAPHYLOCOCCUS RISK FACTORS: ER NOTE 04-18-19: FEVER, COMPLETED COURSE OF KEFLEX FOR UTI, CONSULT NOTE DR. FUNG 04-18-19: SEPSIS SECONDARY TO STAPHYLOCOCCUS TREATMENTS: 04-21-19: VANCOMYCIN IV 04-21-19: IVF NS (This form is maintained as a part of the permanent medical record) 2014 [employer] All Rights Reserved KEN [email or web address] Office: [phone] MICHELE
[2019-04-22] MEDS: HYDROcodone/Acetaminophen 10/325 mg Tablet PO PRN (10:54)
--- NOTE | 2019-04-22 10:56 | CON ---
DATE OF CONSULTATION: HISTORY OF PRESENT ILLNESS: Elvin Hyatt is an 79-year-old morbidly obese female, who was admitted with recurrent sepsis, coagulase-negative Staph, and Corynebacterium felt to be secondary to infection involving the AICD leads, possibly endocarditis. She had a transesophageal echo done, which apparently showed some kind of vegetation. She is now on vancomycin as per Infectious Disease. CT of the chest was done yesterday after she was having some kind of pulmonary issues, became sleepy, lethargic, and had difficulty breathing, and a 7.9 mm round nodule was seen in the right lower lobe. Nonsmoker. No prior history of TB or asthma, but she does use Symbicort inhaler. History of pneumonia in the past. The daughter is at the bedside, who is a service worker helper and states she does not snore. No witnessed apnea. She is relatively functional until her recent issues with persistent fever. PAST MEDICAL HISTORY: Otherwise, congestive cardiomyopathy, chronic back pain, hypothyroidism, arthritis, anemia, hyperlipidemia, anxiety, reflux. PREVIOUS SURGERIES: Bilateral knee surgery, bowel resection, cholecystectomy. Previous pulmonary function tests shows restrictive pulmonary problem and in 2014, biventricular ICD for cardiomyopathy was placed. HOME MEDICATIONS: 1. Lyrica 150. 2. Potassium. 3. Protonix 40. 4. Vitamin. 5. Synthroid 250. 6. Lortab. 7. Celexa 40. 8. Celebrex. 9. Coreg 3.125. ALLERGIES: FLOMAX. SOCIAL HISTORY: Unremarkable. FAMILY HISTORY: Unremarkable. REVIEW OF SYSTEMS: 10-point negative. PHYSICAL EXAMINATION: GENERAL: She is in no acute distress. VITAL SIGNS: Temperature 97, pulse 68, respirations 16, blood pressure 120/59. CHEST: Decreased breath sounds. No wheezing. CARDIAC: Normal S1 and S2. No gallops. ABDOMEN: No masses. LABORATORY DATA: White count 5000, H and H of 13 and 43, platelet count is normal. ASSESSMENT: 1. Sepsis, Staphylococcus epidermidis and presumably Corynebacterium infection with evidence of apparently some kind of vegetation found on DANIELA. 2. Probably sleep apnea, morbid obesity. The patient lost 20 pounds. 3. Nonsmoker. 4. Right lung nodule. Difficult to assess on previous x-rays, but appears it has been done on previous x-rays and just more apparent on the CAT scan. PLAN: 1. At this stage most important issue is regarding her bacteremia, sepsis, presumably colonization either vegetation or infection of ICD leads, morbid obesity, probably sleep apnea. 2. Right lung nodule of unknown significance at the most and best option at this time is to continue antibiotics per ID. Six-month followup with a CAT scan. If there is evidence of increasing size of the lesion, she may undergo PET scan. 3. In the meantime, continue supportive care. Aggressive PT. 4. Start empiric neb treatments. We will follow. Job ID: [id number]
--- NOTE | 2019-04-22 11:46 | CT ---
EXAM: CT brain without contrast HISTORY: Altered mental status COMPARISON: None TECHNIQUE: Multiple contiguous axial images were obtained and a CT of the brain without contrast. FINDINGS: There are scattered hypodensities in the subcortical and periventricular white matter consi stent with small vessel ischemic disease. There is no evidence of hydrocephalus, intracranial hemorrhage, or extra-axial fluid collection. The calvarium and overlying soft tissues are unremarkable. Chronic sinus changes are seen surrounding the left maxillary sinus. The other visualized paranasal sinuses and mastoid air cells are well aerated. IMPRESSION: No evidence of acute intracranial abnormality
--- NOTE | 2019-04-22 12:50 | PDOC.CPN ---
- Subjective Date: 04/22/19 Time: 08:30 Interval history: The pt seen and examined. No overnight events. No cardiac complaints. - Objective Allergies/Adverse Reactions: Allergies Allergy/AdvReac Type Severity Reaction Status Date / Time alendronate sodium Allergy Verified 12/06/14 17:27 [From Fosamax] Visit Medications: Current Medications Acetaminophen (Tylenol) 650 mg PO Q6H PRN PRN Reason: Fever > 101 Hydrocodone Bitart/Acetaminophen ([place] 10/325) 1 tab PO Q6H PRN PRN Reason: Pain Last Admin: 04/22/19 10:54 Dose: 1 tab Albuterol/Ipratropium (Duoneb) 3 ml NEB [id number] [facility] Carvedilol (Coreg) 3.125 mg PO BID [facility] Last Admin: 04/22/19 09:33 Dose: 3.125 mg Celecoxib (Celebrex) 200 mg PO DAILY [facility] Last Admin: 04/22/19 09:32 Dose: 200 mg Cholecalciferol (Vitamin D3) 5,000 units PO HS [facility] Last Admin: 04/21/19 20:34 Dose: 5,000 units Citalopram Hydrobromide (Celexa) 40 mg PO QAM [facility] Last Admin: 04/22/19 09:31 Dose: 40 mg Enoxaparin Sodium (Lovenox) 40 mg SC 0900 [facility] Last Admin: 04/22/19 09:33 Dose: 40 mg Ferrous Sulfate (Feosol) 325 mg PO Q2D@0900 [facility] Last Admin: 04/22/19 09:33 Dose: 325 mg Vancomycin HCl 1.5 gm/ Sodium (Chloride) 300 mls @ 200 mls/hr IVPB 2100 [facility] Last Admin: 04/21/19 21:45 Dose: 300 mls Levothyroxine Sodium (Synthroid) 250 mcg PO 0600 [facility] Last Admin: 04/22/19 06:38 Dose: 250 mcg Miscellaneous Medication (Pharmacy To Dose) 1 each IVPB PRN PRN PRN Reason: Pharmacy to dose Multivitamins (Theragran) 1 tab PO QAM [facility] Last Admin: 04/22/19 09:34 Dose: 1 tab Ondansetron HCl (Zofran) 4 mg PO Q6H PRN PRN Reason: Nausea/Vomiting Pantoprazole Sodium (Protonix) 40 mg PO BID [facility] Last Admin: 04/22/19 09:33 Dose: 40 mg Pregabalin (Lyrica) 150 mg PO BID [facility] Last Admin: 04/22/19 09:32 Dose: 150 mg Rosuvastatin Calcium (Crestor) 20 mg PO QPM [facility] Last Admin: 04/21/19 20:34 Dose: 20 mg Vital Signs & Weight: Vital Signs Temp Pulse Resp BP Pulse Ox 04/22/19 08:00 97.5 F L 68 16 123/59 L 92 L 04/22/19 04:00 97.5 F L 76 16 142/63 H 94 L Admit Weight 209 lb Weight 209 lb - Physical Exam General: alert & oriented x3 Lungs: decreased breath sounds Musculoskeletal: decreased range of motion - Labs Result Diagrams: 04/22/19 07:22 04/22/19 07:22 - Assessment/Plan Assessment/Plan: 1. Vegetation at AICD lead on DANIELA 2/ Stap. epidermidis and corynebacterium - her fever and WBC have been stable; waiting ID recommendation 2. Syncopal episode possible 09/20 SA - 3. Afib - well controlled HR; 4. Ischemic CMY with hx of BiV AICD placement in 2014 - 5. Hypothyrodism - TSH is low today; managed by PCP 6. CKD stage 3 7. COPD - stable with RA 8. Rt lung nodule MAR reviewed
[2019-04-22] MEDS: Rosuvastatin 20 MG TAB PO SCH (20:56)
[2019-04-22] MEDS: Vancomycin HCl 1.5 GM in Sodium Chloride 0.9% 250 ML 300 ML IVPB SCH (20:56)
[2019-04-23] MEDS: Levothyroxine Sodium 125 MCG TAB PO SCH (09:07)
[2019-04-23] MEDS: Pregabalin 75 MG CAP PO SCH (09:08)
[2019-04-23] MEDS: CeleCOXIB 100 MG CAP PO SCH (09:08)
[2019-04-23] MEDS: Carvedilol 3.125 MG TAB PO SCH (09:09)
[2019-04-23] MEDS: Multivit, Therapeutic 1 TAB PO SCH (09:09)
[2019-04-23] MEDS: Citalopram 20 MG TAB PO SCH (09:09)
[2019-04-23 09:28] VITALS: BP 131/60; TEMP 97.3
--- NOTE | 2019-04-23 10:08 | PRG ---
DATE OF SERVICE: 04/23/2019 SUBJECTIVE: The patient is feeling well. She had a better day yesterday and a good night last night. No further episodes of confusion or decreased responsiveness. She reports fatigue, but tolerating physical therapy, walking in the halls daily. She states that she did sit up more yesterday and is feeling better. She denies fevers or chills. Denies nausea or vomiting. Denies chest pain or shortness of breath. OBJECTIVE: VITAL SIGNS: Temperature 97.6, pulse of 89, respirations 18, blood pressure 111/55, and pulse ox is 94% on 3 L. GENERAL: She is awake and alert. No acute distress. Speech is clear. NECK: Supple. HEART: Regular rate and rhythm. LUNGS: Distant, but no wheeze, rales, or rhonchi. ABDOMEN: Soft. EXTREMITIES: With no calf tenderness. Full range of motion. Trace edema. LABORATORY DATA: TSH 0.0379. Brain CT from yesterday showed chronic atrophy changes, but no acute abnormalities. ASSESSMENT AND PLAN: This is an 79-year-old female patient with a history of cardiomyopathy status post automatic implantable cardioverter defibrillator placement, admitted for persistent positive blood cultures and fever. 1. Fever with positive blood cultures with DANIELA showing vegetations on automatic implantable cardioverter defibrillator leads. Appreciate Cardiology and EP evaluation per the recommendation. Awaiting results of the DNA testing. May need extraction of the leads and further workup as per Dr. Lyons. 2. Possible endocarditis. Awaiting DNA testing with a Karius test. Appreciate Dr. Mckeon' evaluation. We will find out if this can be awaited for as an outpatient as the patient is anxious to go home and she is stable at this time. 3. Abnormal CAT scan of the chest with pulmonary nodule. Dr. Price's recommendation was reviewed and we will continue to follow pulmonary nodule. Consider outpatient PET scan. 4. Deconditioning. Continue PT. Continue to encourage her to be out of bed. Job ID: [id number]
--- NOTE | 2019-04-23 10:33 | PRG ---
DATE OF SERVICE: SUBJECTIVE: No shortness of breath. No pain. No fever, no chills. OBJECTIVE: VITAL SIGNS: Temperature 97, pulse 79, respirations 18, sats 95% on room air, blood pressure 120/80. CHEST: Decreased breath sounds. No wheezing. CARDIAC: Normal S1, S2. No gallops. ABDOMEN: Soft. No masses. ASSESSMENT: Infected apparently, AICD lead; right lung nodule of unknown significance; morbid obesity. PLAN: Antibiotics per Infectious Disease. PT, supportive Care. We will follow. Outpatient workup regarding the lung nodule. Job ID: [id number]
[2019-04-23] MEDS: Enoxaparin Sodium 40 MG/0.4 ML SYRINGE SC SCH (11:04)
--- NOTE | 2019-04-23 13:18 | PDOC.CPN ---
- Subjective Date: 04/23/19 Time: 13:18 Interval history: The pt seen and examined. No overnight events. No cardiac complaints. - Objective Allergies/Adverse Reactions: Allergies Allergy/AdvReac Type Severity Reaction Status Date / Time alendronate sodium Allergy Verified 12/06/14 17:27 [From Fosamax] Visit Medications: Current Medications Acetaminophen (Tylenol) 650 mg PO Q6H PRN PRN Reason: Fever > 101 Hydrocodone Bitart/Acetaminophen ([place] 10/325) 1 tab PO Q6H PRN PRN Reason: Pain Last Admin: 04/22/19 10:54 Dose: 1 tab Albuterol/Ipratropium (Duoneb) 3 ml NEB [id number] [facility] Last Admin: 04/23/19 07:54 Dose: 3 ml Carvedilol (Coreg) 3.125 mg PO BID [facility] Last Admin: 04/23/19 09:09 Dose: 3.125 mg Celecoxib (Celebrex) 200 mg PO DAILY [facility] Last Admin: 04/23/19 09:08 Dose: 200 mg Cholecalciferol (Vitamin D3) 5,000 units PO HS [facility] Last Admin: 04/22/19 20:55 Dose: 5,000 units Citalopram Hydrobromide (Celexa) 40 mg PO QAM [facility] Last Admin: 04/23/19 09:09 Dose: 40 mg Enoxaparin Sodium (Lovenox) 40 mg SC 0900 [facility] Last Admin: 04/23/19 11:04 Dose: Not Given Ferrous Sulfate (Feosol) 325 mg PO Q2D@0900 [facility] Last Admin: 04/22/19 09:33 Dose: 325 mg Vancomycin HCl 1.5 gm/ Sodium (Chloride) 300 mls @ 200 mls/hr IVPB 2100 [facility] Last Admin: 04/22/19 20:56 Dose: 300 mls Levothyroxine Sodium (Synthroid) 250 mcg PO 0600 [facility] Last Admin: 04/23/19 09:07 Dose: Not Given Miscellaneous Medication (Pharmacy To Dose) 1 each IVPB PRN PRN PRN Reason: Pharmacy to dose Multivitamins (Theragran) 1 tab PO QAM [facility] Last Admin: 04/23/19 09:09 Dose: 1 tab Ondansetron HCl (Zofran) 4 mg PO Q6H PRN PRN Reason: Nausea/Vomiting Pantoprazole Sodium (Protonix) 40 mg PO BID [facility] Last Admin: 04/23/19 09:09 Dose: 40 mg Pregabalin (Lyrica) 150 mg PO BID [facility] Last Admin: 04/23/19 09:08 Dose: 150 mg Rosuvastatin Calcium (Crestor) 20 mg PO QPM [facility] Last Admin: 04/22/19 20:56 Dose: 20 mg Vital Signs & Weight: Vital Signs Temp Pulse Resp BP Pulse Ox 04/23/19 08:00 97.3 F L 71 18 131/60 95 04/23/19 07:56 94 L 04/23/19 07:54 89 18 94 L Admit Weight 209 lb Weight 209 lb - Physical Exam General: alert & oriented x3 Neck: supple neck Cardiac: regular rate and rhythm, S1/S2 Lungs: clear to auscultation, decreased breath sounds Musculoskeletal: decreased range of motion - Labs Result Diagrams: 04/22/19 07:22 04/22/19 07:22 - Assessment/Plan Assessment/Plan: 1. Vegetation at AICD lead on DANIELA 2/ Stap. epidermidis and corynebacterium - her fever and WBC have been stable; waiting ID recommendation 2. Syncopal episode possible 2/2 SA - 3. Afib - well controlled HR; 4. Ischemic CMY with hx of BiV AICD placement in 2014 - 5. Hypothyrodism - TSH is low today; managed by PCP 6. CKD stage 3 7. COPD - stable with RA 8. Rt lung nodule MAR reviewed
== END 2019-04-23 14:20 | disposition home or self-care (01) | DRG 316 ==
LOC: ERS 09:03 → ONC 11:57
PROVIDERS: ADMIT Family Medicine; ATTEND Family Medicine
DX: T82.7XXA Infection and inflammatory reaction due to other cardiac and vascular devices, implants and grafts, initial encounter (principal); G89.29 Other chronic pain; J44.9 Chronic obstructive pulmonary disease, unspecified; M19.90 Unspecified osteoarthritis, unspecified site; E03.9 Hypothyroidism, unspecified; M85.80 Other specified disorders of bone density and structure, unspecified site; I25.5 Ischemic cardiomyopathy; N18.3 Chronic kidney disease, stage 3 (moderate); Z96.651 Presence of right artificial knee joint; K21.9 Gastro-esophageal reflux disease without esophagitis; M54.5 Low back pain; R91.1 Solitary pulmonary nodule; I48.91 Unspecified atrial fibrillation; E66.01 Morbid (severe) obesity due to excess calories; R40.4 Transient alteration of awareness; B95.8 Unspecified staphylococcus as the cause of diseases classified elsewhere; B96.89 Other specified bacterial agents as the cause of diseases classified elsewhere; Z95.810 Presence of automatic (implantable) cardiac defibrillator; Z90.89 Acquired absence of other organs; Z88.8 Allergy status to other drugs, medicaments and biological substances; Z90.710 Acquired absence of both cervix and uterus; Z90.49 Acquired absence of other specified parts of digestive tract; Z68.35 Body mass index [BMI] 35.0-35.9, adult; Y83.1 Surgical operation with implant of artificial internal device as the cause of abnormal reaction of the patient, or of later complication, without mention of misadventure at the time of the procedure
CPT/HCPCS: 36415; 70450; 71045; 71260; 80048; 80053; 81003; 81015; 84443; 85025; 87040; 87086; 93005; 93312; 94640; 96374; J1650; J2405; J2704; J3370; J7050; J7620; Q9967

== ENCOUNTER → 2019-04-28 | Day surgery (SDC) | payer MEDICARE ==
--- NOTE | 2019-04-28 11:31 | SPC ---
Ultrasound and Fluoroscopic guided left upper extremity PICC placement HISTORY: Endocarditis. Patient needs long-term IV antibiotics. FINDINGS: Informed consent obtained prior to the procedure. An appropriate access site was determined with ultrasound guidance. The area was then meticulously pr epped and draped in usual sterile fashion. Skin overlying the left basilic vein anesthetized with 1% buffered lidocaine. Utilizing direct sonogr aphic guidance, vascular access is obtained via the left basilic vein, and an 0.018in guidewire was advanced to the level of the left subclavian vein. The guidewire was unable to be manipulated distal to the left subclavian AICD leads.. Intravascular length is calculated at 22 cm, and the PICC is cut accordingly. Needle is removed and replaced with a peel-away sheath. The PICC was advanced over the wire. Wire and peel-away sheath were removed. The tip of the catheter overlies the axillary subclavian vein junction. The catheter was accessed and aspirated/flushed easily. Exposure data: 0.6 minutes of fluoroscopic time 4927 mGy square centimeter FINDINGS: Technically successful placement of a 22 centimeter single lumen 5 Sinhala left upper extremity PICC l ine. The tip of the catheter was positioned at the axillary subclavian vein junction on the left and was not able to be manipulated into the SVC secondary to AICD leads and narrowing in the left sub clavian vein. IMPRESSION: Successful ultrasound guided placement of a left upper extremity PICC.
== END ==
LOC: SPEC 09:11
PROVIDERS: ATTEND Internal Medicine Infectious Disease
PROC: 02HV33Z Insertion of Infusion Device into Superior Vena Cava, Percutaneous Approach (ICD-10-PCS; principal; 2019-04-28)
DX: I38 Endocarditis, valve unspecified (principal); Z88.8 Allergy status to other drugs, medicaments and biological substances; Z95.810 Presence of automatic (implantable) cardiac defibrillator
CPT/HCPCS: 36569; C1751

== ENCOUNTER 2021-01-15 23:11 | Emergency (ER) | payer MEDICARE | END 2021-01-16 01:05 | disposition home or self-care (01) | LOC: ERS 23:11 | DX: R06.00 Dyspnea, unspecified (principal); I50.9 Heart failure, unspecified; E03.9 Hypothyroidism, unspecified; E78.00 Pure hypercholesterolemia, unspecified; Z79.899 Other long term (current) drug therapy | CPT/HCPCS: 71045; 93005 ==

== ENCOUNTER 2022-03-12 10:12 | Inpatient (IN) | payer MEDICARE ==
[2022-03-12 10:46] LABS: #Basophils 0.1 thou/uL (0.0-0.2); #Eosinphils 0.1 thou/uL (0.0-0.7); #Lymphocytes 1.7 thou/uL (1.20-3.40); #Monocytes 0.8 thou/uL (0.11-0.59); #Neutrophils 3.8 thou/uL (1.40-6.50); %Basophils 0.8 % (0.0-1.0); %Eosinophils 1.7 % (0.0-10.0); %Lymphocytes 26.5 % (21.0-51.0); %Monocytes 12.1 % (0.0-10.0); %Neutrophils 58.9 % (42.0-75.0); Hemoglobin 13.1 g/dL (12.0-16.0); Mean Corpuscular HGB CONC 32.5 g/dL (32.0-36.0); Mean Corpuscular Hemoglobin 32.9 pg (27.0-31.0); Mean Platelet Volume 8.7 fL (7.4-10.4); Platelet Count 214 thou/uL (130-400); RBC Distribution Width 12.3 % (11.5-14.5); Red Blood Cell (RBC) Count 3.98 mill/uL (4.20-5.40); White Blood Cell (WBC) Count 6.4 thou/uL (4.8-10.8)
[2022-03-12 11:18] LABS: ALT (SGPT) 11 U/L (8-55); AST (SGOT) 17 U/L (5-34); Albumin 3.3 g/dL (3.4-4.8); Alkaline Phosphatase 58 U/L (40-110); Anion Gap 13 mmol/L (10-20); BUN (Urea Nitrogen) 22 mg/dL (9.8-20.1); Bilirubin, Total 0.5 mg/dL (0.2-1.2); CK (CPK) 37 U/L (29-168); Calc. Creatinine Clearance 0 mL/min (70-130); Calcium 8.1 mg/dL (7.8-10.44); Carbon Dioxide 22 mmol/L (23-31); Chloride 103 mmol/L (98-107); Estimated GFR 43; Globulin 1.8 g/dL (2.4-3.5); Glucose 129 mg/dL (83-110); Magnesium 1.8 mg/dL (1.6-2.6); Potassium 4.2 mmol/L (3.5-5.1); Protein, Total 5.1 g/dL (5.8-8.1); Sodium 134 mmol/L (136-145)
[2022-03-12 13:24] LABS: Bilirubin Negative (Negative); Blood, Urine Negative (Negative); Clarity Clear (Clear); Glucose, Urine (Dipstick) Normal (Negative); Ketone, Urine Negative (Negative); Leukocyte Negative Leu/uL (Negative); Nitrite Negative (Negative); Protein, Urine (Dipstick) Negative (Neg-Trace); Specific Gravity, Urine 1.022 (1.002-1.036); Urobilinogen Normal mg/dL (Less than 2); pH, Urine 5.5 (5.0-9.0)
[2022-03-12 13:34] LABS: SARS-CoV-2 NAA Rapid Test Not Detected (NotDetected)
[2022-03-12] MEDS ORDERED: Iopamidol-370 76% 500 ML 1 ML ONE (13:38)
[2022-03-12] MEDS ORDERED: Ondansetron PF 4 MG/2 ML Vial IVP PRN (14:53)
[2022-03-12] MEDS ORDERED: Acetaminophen 325 MG TAB PO PRN (14:53)
[2022-03-12] MEDS ORDERED: Bisacodyl 5 MG TAB PO PRN (14:53)
[2022-03-12] MEDS ORDERED: Ondansetron ODT 4 MG TAB PO PRN (14:53)
[2022-03-12] MEDS ORDERED: HYDROcodone/Acetaminophen 5/325 mg Tablet PO PRN (14:53)
[2022-03-12] MEDS ORDERED: Bisacodyl 10 MG SUPP PR PRN (14:53)
[2022-03-12] MEDS ORDERED: Senokot S 8.6-50 MG TAB PO PRN (14:53)
[2022-03-12] MEDS ORDERED: Sodium Chloride 0.9% 1,000 ML IV SCH (15:00)
[2022-03-12 17:07] VITALS: BMI 33.5
[2022-03-12 17:43] LABS: Troponin I 0.013 ng/mL (< 0.028)
[2022-03-12] MEDS ORDERED: HYDROcodone/Acetaminophen 10/325 mg Tablet PO PRN (19:46)
[2022-03-12] MEDS ORDERED: Pregabalin 75 MG CAP PO SCH (21:00)
[2022-03-12 21:01] LABS: Troponin I 0.024 ng/mL (< 0.028)
[2022-03-12] MEDS: Sodium Chloride 0.9% 1,000 ML IV SCH ×2 (21:20→22:24)
[2022-03-12] MEDS: HYDROcodone/Acetaminophen 10/325 mg Tablet PO PRN (22:36)
[2022-03-13 05:26] LABS: #Basophils 0.1 thou/uL (0.0-0.2); #Eosinphils 0.1 thou/uL (0.0-0.7); #Lymphocytes 1.5 thou/uL (1.20-3.40); #Monocytes 0.6 thou/uL (0.11-0.59); #Neutrophils 4.8 thou/uL (1.40-6.50); %Basophils 0.7 % (0.0-1.0); %Eosinophils 1.7 % (0.0-10.0); %Lymphocytes 21.3 % (21.0-51.0); %Neutrophils 68.2 % (42.0-75.0); Hemoglobin 13.8 g/dL (12.0-16.0); Mean Corpuscular HGB CONC 32.1 g/dL (32.0-36.0); Mean Corpuscular Hemoglobin 33.2 pg (27.0-31.0); Mean Platelet Volume 8.9 fL (7.4-10.4); Platelet Count 194 thou/uL (130-400); RBC Distribution Width 12.7 % (11.5-14.5); Red Blood Cell (RBC) Count 4.15 mill/uL (4.20-5.40)
[2022-03-13 05:43] LABS: ALT (SGPT) 12 U/L (8-55); AST (SGOT) 17 U/L (5-34); Albumin 3.5 g/dL (3.4-4.8); Alkaline Phosphatase 67 U/L (40-110); Anion Gap 11 mmol/L (10-20); BUN (Urea Nitrogen) 14 mg/dL (9.8-20.1); Bilirubin, Total 0.5 mg/dL (0.2-1.2); Calc. Creatinine Clearance 85 mL/min (70-130); Carbon Dioxide 23 mmol/L (23-31); Chloride 108 mmol/L (98-107); Estimated GFR 86; Globulin 2.3 g/dL (2.4-3.5); Glucose 87 mg/dL (83-110); Potassium 4.5 mmol/L (3.5-5.1); Protein, Total 5.8 g/dL (5.8-8.1); Sodium 137 mmol/L (136-145)
[2022-03-13] MEDS: HYDROcodone/Acetaminophen 10/325 mg Tablet PO PRN (07:48)
[2022-03-13] MEDS: Sodium Chloride 0.9% 1,000 ML IV SCH (07:50)
[2022-03-13] MEDS ORDERED: Ferrous Sulfate 325 MG TAB PO SCH (08:00)
[2022-03-13] MEDS ORDERED: Non-Formulary Item 1 EACH (Levothyroxine Sodium [Levothyroxine] 150 MCG Capsule) PO SCH (09:00)
[2022-03-13] MEDS ORDERED: Rosuvastatin 20 MG TAB PO SCH (09:00)
[2022-03-13] MEDS ORDERED: Citalopram 20 MG TAB PO SCH (09:00)
[2022-03-13 11:39] VITALS: BP 132/74; TEMP 97.6
[2022-03-14] MEDS ORDERED: CeleCOXIB 100 MG CAP PO SCH (09:00)
== END 2022-03-13 15:07 | disposition home or self-care (01) | DRG 315 ==
LOC: ERS 10:12 → ERHOLD 13:30 → OBSVTOIN 15:03 → NEURO 16:09
PROVIDERS: ADMIT Family Medicine; ATTEND Internal Medicine
PROC: 06HY33Z Insertion of Infusion Device into Lower Vein, Percutaneous Approach (ICD-10-PCS; principal; 2022-03-12)
DX: I95.9 Hypotension, unspecified (principal); N17.9 Acute kidney failure, unspecified; E87.1 Hypo-osmolality and hyponatremia; I25.5 Ischemic cardiomyopathy; E03.9 Hypothyroidism, unspecified; E78.5 Hyperlipidemia, unspecified; G89.29 Other chronic pain; M51.26 Other intervertebral disc displacement, lumbar region; J44.9 Chronic obstructive pulmonary disease, unspecified; Z96.651 Presence of right artificial knee joint; D64.9 Anemia, unspecified; I48.0 Paroxysmal atrial fibrillation; E55.9 Vitamin D deficiency, unspecified; Z20.822 Contact with and (suspected) exposure to COVID-19; Z88.8 Allergy status to other drugs, medicaments and biological substances; Z95.810 Presence of automatic (implantable) cardiac defibrillator; Z79.899 Other long term (current) drug therapy; Z90.49 Acquired absence of other specified parts of digestive tract; Z98.890 Other specified postprocedural states; Z90.710 Acquired absence of both cervix and uterus
CPT/HCPCS: 36415; 71045; 71275; 74174; 80053; 81003; 82550; 83605; 83690; 83735; 83880; 84439; 84443; 84480; 84484; 85025; 87040; 87086; 93005; G0378; J7050; Q9967; U0002

== ENCOUNTER 2022-08-22 08:56 | Emergency (ER) | payer OTHER, MEDICARE | END 2022-08-22 11:28 | disposition home or self-care (01) | LOC: ERS 08:56 | DX: S09.90XA Unspecified injury of head, initial encounter (principal); E03.9 Hypothyroidism, unspecified; E78.00 Pure hypercholesterolemia, unspecified; V89.2XXA Person injured in unspecified motor-vehicle accident, traffic, initial encounter | CPT/HCPCS: 70450; 72125 ==

== ENCOUNTER 2022-11-26 15:49 | Emergency (ER) | payer MEDICARE ==
[~2022-11-26 15:49] MED LIST changes: -Iopamidol 370 76% 100 ML VIAL ONE; +Iopamidol-370 76% 500 ML MDV (1 ML CHARGE) ONE
[2022-11-26 16:52] LABS: #Basophils 0.1 thou/uL (0.0-0.2); #Eosinphils 0.2 thou/uL (0.0-0.7); #Lymphocytes 2.3 thou/uL (1.20-3.40); #Monocytes 0.6 thou/uL (0.11-0.59); #Neutrophils 7.7 thou/uL (1.40-6.50); %Basophils 0.6 % (0.0-1.0); %Eosinophils 2.1 % (0.0-10.0); %Lymphocytes 21.4 % (21.0-51.0); %Monocytes 5.4 % (0.0-10.0); %Neutrophils 70.5 % (42.0-75.0); Hemoglobin 14.8 g/dL (12.0-16.0); Mean Corpuscular HGB CONC 31.8 g/dL (32.0-36.0); Mean Corpuscular Hemoglobin 31.8 pg (27.0-31.0); Mean Corpuscular Volume 99.8 fl (78.0-98.0); Platelet Count 195 10x3/uL (130-400); RBC Distribution Width 14.4 % (11.5-14.5); Red Blood Cell (RBC) Count 4.66 mill/uL (4.20-5.40); White Blood Cell (WBC) Count 10.9 10x3/uL (4.8-10.8)
[2022-11-26 17:11] LABS: ALT (SGPT) 16 U/L (8-55); AST (SGOT) 26 U/L (5-34); Alkaline Phosphatase 104 U/L (40-110); Anion Gap 13 mmol/L (10-20); BUN (Urea Nitrogen) 18 mg/dL (9.8-20.1); Bilirubin, Total 0.4 mg/dL (0.2-1.2); Calc. Creatinine Clearance 0 mL/min (70-130); Calcium 9.3 mg/dL (7.8-10.44); Carbon Dioxide 22 mmol/L (23-31); Chloride 107 mmol/L (98-107); Estimated GFR 56; Globulin 2.8 g/dL (2.4-3.5); Glucose 105 mg/dL (83-110); Lipase 32 U/L (8-78); Potassium 4.4 mmol/L (3.5-5.1); Protein, Total 6.8 g/dL (5.8-8.1); Sodium 138 mmol/L (136-145)
[2022-11-26 17:54] LABS: Bacteria/HPF Rare-Few HPF (None Seen); Bilirubin Negative (Negative); Blood, Urine 1+ (Negative); Clarity Clear (Clear); Glucose, Urine (Dipstick) Normal (Negative); Ketone, Urine Negative (Negative); Leukocyte 500 Leu/uL (Negative); Nitrite Negative (Negative); Protein, Urine (Dipstick) 10 mg/dL (Neg-Trace); Specific Gravity, Urine 1.031 (1.002-1.036); Squamous Epithelial 0-3 HPF (0-3); WBC/HPF 21-50 HPF (0-3); pH, Urine 5.5 (5.0-9.0)
== END 2022-11-26 19:20 | disposition home or self-care (01) ==
LOC: ERS 15:49
DX: J18.9 Pneumonia, unspecified organism (principal); A09 Infectious gastroenteritis and colitis, unspecified; N39.0 Urinary tract infection, site not specified; D72.829 Elevated white blood cell count, unspecified; E03.9 Hypothyroidism, unspecified; E78.00 Pure hypercholesterolemia, unspecified
CPT/HCPCS: 36415; 71045; 74177; 80053; 81003; 81015; 83605; 83690; 84484; 85025; 93005; 96365; J1956; Q9967

== ENCOUNTER 2022-12-08 09:07 | Emergency (ER) | payer MEDICARE ==
[2022-12-08] MEDS ORDERED: Ondansetron PF 4 MG/2 ML Vial ONE (09:49)
[2022-12-08] MEDS ORDERED: Morphine 4 MG/ML VIAL ONE (09:49)
[2022-12-08 10:23] LABS: #Basophils 0.1 thou/uL (0.0-0.2); #Eosinphils 0.3 thou/uL (0.0-0.7); #Lymphocytes 2.4 thou/uL (1.20-3.40); #Monocytes 0.7 thou/uL (0.11-0.59); %Basophils 1.1 % (0.0-1.0); %Eosinophils 2.7 % (0.0-10.0); %Lymphocytes 25.3 % (21.0-51.0); %Monocytes 7.7 % (0.0-10.0); %Neutrophils 63.3 % (42.0-75.0); Mean Corpuscular Hemoglobin 35.1 pg (27.0-31.0); Mean Platelet Volume 9.4 fL (7.4-10.4); Platelet Count 202 10x3/uL (130-400); RBC Distribution Width 15.3 % (11.5-14.5); Red Blood Cell (RBC) Count 4.28 mill/uL (4.20-5.40); White Blood Cell (WBC) Count 9.5 10x3/uL (4.8-10.8)
[2022-12-08] MEDS ORDERED: Iopamidol-370 76% 500 ML MDV (1 ML CHARGE) ONE (10:35)
[2022-12-08 10:45] LABS: ALT (SGPT) 40 U/L (8-55); AST (SGOT) 56 U/L (5-34); Alkaline Phosphatase 126 U/L (40-110); Anion Gap 16 mmol/L (10-20); BUN (Urea Nitrogen) 24 mg/dL (9.8-20.1); Bilirubin, Total 0.4 mg/dL (0.2-1.2); CK (CPK) 211 U/L (29-168); Calc. Creatinine Clearance 0 mL/min (70-130); Carbon Dioxide 26 mmol/L (23-31); Chloride 100 mmol/L (98-107); Estimated GFR 45; Globulin 2.6 g/dL (2.4-3.5); Glucose 116 mg/dL (83-110); Lipase 32 U/L (8-78); Potassium 4.8 mmol/L (3.5-5.1); Protein, Total 6.6 g/dL (5.8-8.1); Sodium 137 mmol/L (136-145)
== END 2022-12-08 12:36 | disposition home or self-care (01) ==
LOC: ERS 09:07
DX: K59.00 Constipation, unspecified (principal); E03.9 Hypothyroidism, unspecified; E78.00 Pure hypercholesterolemia, unspecified; I50.9 Heart failure, unspecified; Z79.899 Other long term (current) drug therapy
CPT/HCPCS: 36415; 74177; 80053; 82550; 83690; 85025; 96374; 96375; J2270; J2405; Q9967

== ENCOUNTER 2022-12-10 15:29 | Emergency (ER) | payer MEDICARE ==
[2022-12-10 16:17] LABS: #Basophils 0.1 thou/uL (0.0-0.2); #Eosinphils 0.2 thou/uL (0.0-0.7); #Lymphocytes 1.4 thou/uL (1.20-3.40); #Monocytes 0.7 thou/uL (0.11-0.59); #Neutrophils 6.3 thou/uL (1.40-6.50); %Basophils 0.6 % (0.0-1.0); %Eosinophils 2.8 % (0.0-10.0); %Lymphocytes 15.8 % (21.0-51.0); %Monocytes 7.6 % (0.0-10.0); %Neutrophils 73.1 % (42.0-75.0); Hemoglobin 13.5 g/dL (12.0-16.0); Mean Corpuscular HGB CONC 30.8 g/dL (32.0-36.0); Mean Corpuscular Hemoglobin 31.8 pg (27.0-31.0); Platelet Count 188 10x3/uL (130-400); RBC Distribution Width 15.1 % (11.5-14.5); Red Blood Cell (RBC) Count 4.26 mill/uL (4.20-5.40); White Blood Cell (WBC) Count 8.6 10x3/uL (4.8-10.8)
[2022-12-10 16:49] LABS: ALT (SGPT) 51 U/L (8-55); AST (SGOT) 57 U/L (5-34); Albumin 3.9 g/dL (3.4-4.8); Alkaline Phosphatase 137 U/L (40-110); Anion Gap 15 mmol/L (10-20); BUN (Urea Nitrogen) 21 mg/dL (9.8-20.1); Bilirubin, Total 0.3 mg/dL (0.2-1.2); Calc. Creatinine Clearance 0 mL/min (70-130); Carbon Dioxide 26 mmol/L (23-31); Chloride 100 mmol/L (98-107); Estimated GFR 54; Globulin 2.6 g/dL (2.4-3.5); Glucose 134 mg/dL (83-110); Potassium 5.4 mmol/L (3.5-5.1); Protein, Total 6.5 g/dL (5.8-8.1); Sodium 136 mmol/L (136-145)
[2022-12-10] MEDS ORDERED: Piperacillin/Tazobactam 4.5 GM VIAL ONE (17:25)
[2022-12-10] MEDS ORDERED: Fleet Saline Enema 133 ML BOT FS SCH (19:15)
[2022-12-10 19:41] LABS: Lactic Acid 2.1 mmol/L (0.5-2.2)
== END 2022-12-10 20:15 | disposition home or self-care (01) ==
LOC: ERS 15:29
DX: K59.00 Constipation, unspecified (principal); I50.9 Heart failure, unspecified; E03.9 Hypothyroidism, unspecified; E78.00 Pure hypercholesterolemia, unspecified; Z79.899 Other long term (current) drug therapy
CPT/HCPCS: 36415; 71045; 74177; 80053; 83605; 83880; 84484; 85025; 87040; 93005; 96374; J2543

== ENCOUNTER 2022-12-11 21:04 | Emergency (ER) | payer MEDICARE ==
[2022-12-11 22:07] LABS: #Basophils 0.1 thou/uL (0.0-0.2); #Eosinphils 0.2 thou/uL (0.0-0.7); #Lymphocytes 1.7 thou/uL (1.20-3.40); #Monocytes 0.5 thou/uL (0.11-0.59); #Neutrophils 4.4 thou/uL (1.40-6.50); %Eosinophils 2.2 % (0.0-10.0); %Lymphocytes 24.7 % (21.0-51.0); %Monocytes 7.3 % (0.0-10.0); %Neutrophils 64.8 % (42.0-75.0); Hemoglobin 13.5 g/dL (12.0-16.0); Mean Corpuscular HGB CONC 32.8 g/dL (32.0-36.0); Mean Corpuscular Hemoglobin 33.2 pg (27.0-31.0); Platelet Count 192 10x3/uL (130-400); RBC Distribution Width 14.9 % (11.5-14.5); Red Blood Cell (RBC) Count 4.06 mill/uL (4.20-5.40); White Blood Cell (WBC) Count 6.8 10x3/uL (4.8-10.8)
[2022-12-11 22:29] LABS: Phosphorus 3.7 mg/dL (2.3-4.7)
[2022-12-11 22:31] LABS: ALT (SGPT) 35 U/L (8-55); AST (SGOT) 36 U/L (5-34); Albumin 3.8 g/dL (3.4-4.8); Alkaline Phosphatase 119 U/L (40-110); Anion Gap 16 mmol/L (10-20); BUN (Urea Nitrogen) 20 mg/dL (9.8-20.1); Bilirubin, Total 0.2 mg/dL (0.2-1.2); Calc. Creatinine Clearance 0 mL/min (70-130); Calcium 9.9 mg/dL (7.8-10.44); Carbon Dioxide 30 mmol/L (23-31); Chloride 99 mmol/L (98-107); Estimated GFR 47; Globulin 2.6 g/dL (2.4-3.5); Glucose 106 mg/dL (83-110); Magnesium 2.4 mg/dL (1.6-2.6); Potassium 4.9 mmol/L (3.5-5.1); Protein, Total 6.4 g/dL (5.8-8.1); Sodium 140 mmol/L (136-145)
== END 2022-12-11 23:49 | disposition home or self-care (01) ==
LOC: ERS 21:04
DX: M62.838 Other muscle spasm (principal); E03.9 Hypothyroidism, unspecified; E78.00 Pure hypercholesterolemia, unspecified; Z79.899 Other long term (current) drug therapy
CPT/HCPCS: 36415; 80053; 83735; 84100; 85025; 99284

== ENCOUNTER 2023-03-02 18:40 | Emergency (ER) | payer MEDICARE | END 2023-03-02 19:07 | disposition home or self-care (01) | LOC: ERS 18:40 | DX: T18.128A Food in esophagus causing other injury, initial encounter (principal); I50.9 Heart failure, unspecified; E03.9 Hypothyroidism, unspecified; Z79.899 Other long term (current) drug therapy | CPT/HCPCS: 99283 ==

== ENCOUNTER 2023-05-07 09:02 | Outpatient (CLI) | payer MEDICARE | END 2023-05-07 09:03 | disposition home or self-care (01) | LOC: BICMAMMO 09:02 | PROVIDERS: ATTEND Physician Assistant | DX: Z13.820 Encounter for screening for osteoporosis (principal); Z78.0 Asymptomatic menopausal state; M85.851 Other specified disorders of bone density and structure, right thigh; M85.852 Other specified disorders of bone density and structure, left thigh; M81.0 Age-related osteoporosis without current pathological fracture | CPT/HCPCS: 77080 ==

== ENCOUNTER 2024-03-04 08:23 | Emergency (ER) | payer MEDICARE ==
[2024-03-04] MEDS ORDERED: HYDROcodone/Acetaminophen 5/325 mg Tablet ONE (09:36)
== END 2024-03-04 10:43 | disposition home or self-care (01) ==
LOC: ERS 08:23
DX: S52.571A Other intraarticular fracture of lower end of right radius, initial encounter for closed fracture (principal); S52.611A Displaced fracture of right ulna styloid process, initial encounter for closed fracture; E78.00 Pure hypercholesterolemia, unspecified; E03.9 Hypothyroidism, unspecified; W19.XXXA Unspecified fall, initial encounter; Z79.899 Other long term (current) drug therapy
CPT/HCPCS: 29105; 71045

== ENCOUNTER 2024-06-17 10:30 | Outpatient (CLI) | payer MEDICARE ==
[2024-06-17 12:41] LABS: #Basophils 0.06 10x3/uL (0.0-0.2); %Basophils 0.8 % (0.0-1.0); %Eosinophils 2.9 % (0.0-10.0); %Lymphocytes 15.4 % (21.0-51.0); %Monocytes 10.2 % (0.0-10.0); %Neutrophils 70.4 % (42.0-75.0); Hematocrit 42.1 % (36.0-47.0); Hemoglobin 12.4 g/dL (12.0-16.0); Mean Corpuscular HGB CONC 29.5 g/dL (32.0-36.0); Mean Corpuscular Volume 98.6 fL (78.0-98.0); Mean Platelet Volume 11.1 fL (7.4-10.4); Platelet Count 188 10x3/uL (130-400); RBC Distribution Width 19.2 % (11.5-14.5); Red Blood Cell (RBC) Count 4.27 mill/uL (4.20-5.40)
[2024-06-17 12:49] LABS: Bilirubin Negative (Negative); Blood, Urine Trace (Negative); Clarity Turbid (Clear); Glucose, Urine (Dipstick) Normal (Negative); Ketone, Urine Negative (Negative); Leukocyte 500 Leu/uL (Negative); Nitrite Negative (Negative); Protein, Urine (Dipstick) 20 mg/dL (Neg-Trace); Specific Gravity, Urine 1.009 (1.002-1.036); Urobilinogen Normal mg/dL (Less than 2)
[2024-06-17 12:56] LABS: ALT (SGPT) 16 U/L (8-55); AST (SGOT) 22 U/L (5-34); Albumin 3.3 g/dL (3.4-4.8); Alkaline Phosphatase 64 U/L (40-110); Anion Gap 14 mmol/L (10-20); BUN (Urea Nitrogen) 16 mg/dL (9.8-20.1); Bilirubin, Total 0.4 mg/dL (0.2-1.2); Calc. Creatinine Clearance 0 mL/min (70-130); Carbon Dioxide 26 mmol/L (23-31); Chloride 106 mmol/L (98-107); Estimated GFR 74; Globulin 2.7 g/dL (2.4-3.5); Glucose 100 mg/dL (83-110); Potassium 4.7 mmol/L (3.5-5.1); Sodium 141 mmol/L (136-145)
[2024-06-17 13:09] LABS: INR-International Normal Ratio 1.1; PTT 29.7 sec (22.9-36.1); Prothrombin Time 13.8 sec (12.0-14.7)
== END 2024-06-17 10:31 | disposition home or self-care (01) ==
LOC: LABBT 10:30
PROVIDERS: ATTEND Internal Medicine Cardiovascular Disease
DX: Z01.818 Encounter for other preprocedural examination (principal); I48.0 Paroxysmal atrial fibrillation; Z91.81 History of falling
CPT/HCPCS: 80053; 81003; 85025; 85610; 85730; 86850; 86870; 86900; 86901; 93005; 93010

== ENCOUNTER 2024-06-17 11:00 | Inpatient (IN) | payer MEDICARE ==
[2024-06-17 11:01] VITALS: BMI 33.6
[2024-06-22] MEDS ORDERED: Heparin 10,000 UNITS/ 10 ML VIAL ONE (06:53)
[2024-06-22] MEDS ORDERED: Protamine Sulfate 50 MG/5 ML VIAL ONE (06:53)
[2024-06-22] MEDS ORDERED: CEFAZOLIN 2 GM VIAL ONE (06:53)
[2024-06-22] MEDS ORDERED: fentaNYL 50 mcg/mL 1 mL Vial ONE ×2 (07:01→11:15)
[2024-06-22] MEDS ORDERED: Rocuronium Bromide 10 MG/ML (10ML VIAL) ONE (08:05)
[2024-06-22] MEDS ORDERED: Lidocaine 1% PF 5 ML VIAL ONE (08:05)
[2024-06-22] MEDS ORDERED: PROPOFOL 200 MG/20 ML VIAL ONE (08:05)
[2024-06-22] MEDS ORDERED: PHENYLEPHRINE-NS 100 MCG/ML 10 ML SYRINGE ONE (08:05)
[2024-06-22] MEDS ORDERED: Ondansetron PF 4 MG/2 ML Vial ONE (08:05)
[2024-06-22] MEDS ORDERED: Dexamethasone 20 MG/5 ML VIAL ONE (08:05)
[2024-06-22] MEDS ORDERED: Iopamidol 370 76% 100 ML VIAL ONE (10:00)
[2024-06-22] MEDS ORDERED: SUGAMMADEX SODIUM 200 MG/2 ML VIAL ONE (10:22)
[2024-06-22] MEDS ORDERED: Labetalol HCl 100 MG/20 ML VIAL SLOW IVP PRN (16:56)
[2024-06-22] MEDS ORDERED: hydrALAZINE 20 MG/ML VIAL SLOW IVP PRN (16:57)
[2024-06-22] MEDS ORDERED: Furosemide 20 MG (2 mL) VIAL ONE (17:01)
[2024-06-22] MEDS ORDERED: Ondansetron PF 4 MG/2 ML Vial IVP PRN (17:29)
[2024-06-22] MEDS ORDERED: Calcium Carbonate 500 MG ChewTAB PO PRN (17:29)
[2024-06-22] MEDS ORDERED: Senokot S 8.6-50 MG TAB PO PRN (17:29)
[2024-06-22] MEDS ORDERED: Acetaminophen 325 MG TAB PO PRN (17:29)
[2024-06-22] MEDS ORDERED: Dextrose 50% Abboject 50 ML SYRINGE SLOW IVP PRN (18:15)
[2024-06-22] MEDS ORDERED: Glucagon 1 MG/ML KIT IM PRN (18:15)
[2024-06-22] MEDS ORDERED: Dextrose 5% in Water 1,000 ML IV PRN (18:15)
[2024-06-22] MEDS ORDERED: Insulin Lispro 100 UNIT/ML 10 ML VIAL SC PRN (18:15)
[2024-06-22] MEDS: Furosemide 40 MG (4 mL) VIAL SLOW IVP SCH (18:31)
[2024-06-22 20:26] LABS: #Basophils Less than 0.03 10x3/uL (0.0-0.2); #Eosinophils Less than 0.03 10x3/uL (0.0-0.7); %Basophils 0.2 % (0.0-1.0); %Neutrophils 89.2 % (42.0-75.0); Hematocrit 40.3 % (36.0-47.0); Hemoglobin 12.4 g/dL (12.0-16.0); Mean Corpuscular HGB CONC 30.8 g/dL (32.0-36.0); Mean Corpuscular Hemoglobin 28.9 pg (27.0-31.0); Mean Corpuscular Volume 93.9 fL (78.0-98.0); Mean Platelet Volume 11.2 fL (7.4-10.4); Platelet Count 173 10x3/uL (130-400); RBC Distribution Width 18.4 % (11.5-14.5); Red Blood Cell (RBC) Count 4.29 mill/uL (4.20-5.40)
[2024-06-22 20:42] LABS: Anion Gap 15 mmol/L (10-20); BUN (Urea Nitrogen) 14 mg/dL (9.8-20.1); Calc. Creatinine Clearance 74 mL/min (70-130); Calcium 8.2 mg/dL (7.8-10.44); Carbon Dioxide 23 mmol/L (23-31); Chloride 109 mmol/L (98-107); Estimated GFR 73; Glucose 171 mg/dL (83-110); Magnesium 1.6 mg/dL (1.6-2.6); Potassium 4.1 mmol/L (3.5-5.1); Sodium 143 mmol/L (136-145)
[2024-06-22] MEDS ORDERED: Pantoprazole DR 40 MG TAB PO SCH (21:00)
[2024-06-22] MEDS ORDERED: Pregabalin 75 MG CAP PO SCH (21:00)
[2024-06-22] MEDS ORDERED: Magnesium Sulfate 4 GM in Sodium Chloride 0.9% 250 ML 250 ML IVPB SCH (22:00)
[2024-06-22] MEDS: Pregabalin 75 MG CAP PO SCH (22:08)
[2024-06-22] MEDS: Potassium Chloride 20 MEQ TAB PO SCH (22:08)
[2024-06-22] MEDS: Pantoprazole DR 40 MG TAB PO SCH (22:08)
[2024-06-22] MEDS: Magnesium Sulfate In Water 4 GM in Premix 1 BAG IVPB SCH (23:59)
[2024-06-23 04:29] LABS: #Basophils Less than 0.03 10x3/uL (0.0-0.2); #Eosinophils Less than 0.03 10x3/uL (0.0-0.7); %Basophils 0.2 % (0.0-1.0); %Lymphocytes 8.2 % (21.0-51.0); %Monocytes 7.3 % (0.0-10.0); %Neutrophils 84.1 % (42.0-75.0); Hematocrit 39.5 % (36.0-47.0); Mean Corpuscular HGB CONC 30.4 g/dL (32.0-36.0); Mean Corpuscular Hemoglobin 28.8 pg (27.0-31.0); Mean Platelet Volume 12.3 fL (7.4-10.4); Platelet Count 183 10x3/uL (130-400); RBC Distribution Width 17.9 % (11.5-14.5); Red Blood Cell (RBC) Count 4.16 mill/uL (4.20-5.40)
[2024-06-23 05:07] LABS: ALT (SGPT) 9 U/L (8-55); AST (SGOT) 18 U/L (5-34); Albumin 3.1 g/dL (3.4-4.8); Alkaline Phosphatase 59 U/L (40-110); Anion Gap 13 mmol/L (10-20); BUN (Urea Nitrogen) 13 mg/dL (9.8-20.1); Bilirubin, Total 0.3 mg/dL (0.2-1.2); Calc. Creatinine Clearance 77 mL/min (70-130); Calcium 8.4 mg/dL (7.8-10.44); Carbon Dioxide 24 mmol/L (23-31); Chloride 106 mmol/L (98-107); Estimated GFR 76; Globulin 2.9 g/dL (2.4-3.5); Glucose 139 mg/dL (83-110); Magnesium 2.8 mg/dL (1.6-2.6); Potassium 3.9 mmol/L (3.5-5.1); Sodium 139 mmol/L (136-145)
[2024-06-23] MEDS: Levothyroxine 150 MCG TAB PO SCH (06:05)
[2024-06-23] MEDS ORDERED: Rosuvastatin 20 MG TAB PO SCH (09:00)
[2024-06-23] MEDS: Multivitamin W/ Minerals 1 TAB PO SCH (09:05)
[2024-06-23] MEDS: Escitalopram Oxalate 10 mg Tablet PO SCH (09:05)
[2024-06-23] MEDS: Carvedilol 3.125 MG TAB PO SCH (09:05)
[2024-06-23] MEDS: HYDROcodone/Acetaminophen 10/325 mg Tablet PO PRN (09:05)
[2024-06-23] MEDS: Rosuvastatin 20 MG TAB PO SCH (09:05)
[2024-06-23] MEDS: Clopidogrel Bisulfate 75 MG TAB PO SCH (09:07)
[2024-06-23] MEDS ORDERED: Benzonatate 100 MG CAP PO PRN (09:57)
[2024-06-23 11:19] VITALS: TEMP 98.1
[2024-06-23 11:45] VITALS: BP 132/61
[2024-06-24] MEDS ORDERED: Ferrous Sulfate 325 MG TAB PO SCH (08:00)
[2024-06-24] MEDS ORDERED: RISEDRONATE 35 MG TAB PO SCH (08:00)
[2024-06-24] MEDS ORDERED: CeleCOXIB 100 MG CAP PO SCH (09:00)
[2024-06-24] MEDS ORDERED: Multivitamin W/ Minerals 1 TAB PO SCH (09:00)
[2024-06-24] MEDS ORDERED: diphenhydrAMINE 25 MG CAP PO SCH (09:00)
[2024-06-24] MEDS ORDERED: Aspirin 81 mg Enteric Coated Tablet PO SCH (09:00)
[2024-06-30] MEDS ORDERED: Non-Formulary Item 1 EACH (Risedronate Sodium [Risedronate Sodium] 35 MG Tablet) PO SCH (09:00)
== END 2024-06-23 13:35 | disposition home or self-care (01) | DRG 274 ==
LOC: SURG A 06-22 06:08 → 2NO 06-22 19:49
PROVIDERS: ADMIT Internal Medicine; ATTEND Internal Medicine
PROC: 02L73DK Occlusion of Left Atrial Appendage with Intraluminal Device, Percutaneous Approach (ICD-10-PCS; principal; 2024-06-22)
PROC: B24BZZ4 Ultrasonography of Heart with Aorta, Transesophageal (ICD-10-PCS; 2024-06-22)
DX: I48.0 Paroxysmal atrial fibrillation (principal); Z00.6 Encounter for examination for normal comparison and control in clinical research program; I50.22 Chronic systolic (congestive) heart failure; I11.0 Hypertensive heart disease with heart failure; E78.5 Hyperlipidemia, unspecified; I25.10 Atherosclerotic heart disease of native coronary artery without angina pectoris; E03.9 Hypothyroidism, unspecified; R42 Dizziness and giddiness; I44.7 Left bundle-branch block, unspecified; I35.0 Nonrheumatic aortic (valve) stenosis; Z95.810 Presence of automatic (implantable) cardiac defibrillator; Z98.890 Other specified postprocedural states; Z88.8 Allergy status to other drugs, medicaments and biological substances; Z79.890 Hormone replacement therapy
CPT/HCPCS: 33340; 36415; 36416; 80048; 80053; 83735; 85025; 85347; 86850; 86900; 86901; 86922; 93306; 93355; C1759; C1760; C1817; C1894; J1100; J1644; J1940; J2405; J2704; J2720; J3010; J3475; Q9967

== ENCOUNTER 2024-07-18 19:00 | Inpatient (IN) | payer MEDICARE ==
[2024-07-18] MEDS ORDERED: Acetaminophen 500 MG TAB ONE (20:00)
[2024-07-18] MEDS ORDERED: Furosemide 40 MG (4 mL) VIAL ONE (20:37)
[2024-07-18 20:55] LABS: #Basophils 0.09 10x3/uL (0.0-0.2); %Lymphocytes 13.2 % (21.0-51.0); %Monocytes 8.2 % (0.0-10.0); %Neutrophils 73.3 % (42.0-75.0); Mean Corpuscular HGB CONC 30.2 g/dL (32.0-36.0); Mean Corpuscular Hemoglobin 29.4 pg (27.0-31.0); Mean Corpuscular Volume 97.3 fL (78.0-98.0); Mean Platelet Volume 11.5 fL (7.4-10.4); Platelet Count 232 10x3/uL (130-400); RBC Distribution Width 15.8 % (11.5-14.5); Red Blood Cell (RBC) Count 4.42 mill/uL (4.20-5.40)
[2024-07-18 21:16] LABS: Troponin I 0.058 ng/mL (< 0.028)
[2024-07-18 21:27] LABS: ALT (SGPT) 16 U/L (8-55); AST (SGOT) 39 U/L (5-34); Albumin 2.9 g/dL (3.4-4.8); Alkaline Phosphatase 71 U/L (40-110); Anion Gap 14 mmol/L (10-20); BUN (Urea Nitrogen) 17 mg/dL (9.8-20.1); Bilirubin, Total 0.3 mg/dL (0.2-1.2); Calc. Creatinine Clearance 0 mL/min (70-130); Calcium 8.9 mg/dL (7.8-10.44); Carbon Dioxide 26 mmol/L (23-31); Chloride 107 mmol/L (98-107); Estimated GFR 66; Globulin 3.4 g/dL (2.4-3.5); Glucose 121 mg/dL (83-110); Potassium 5.1 mmol/L (3.5-5.1); Protein, Total 6.3 g/dL (5.8-8.1); Sodium 142 mmol/L (136-145)
[2024-07-18] MEDS ORDERED: Aspirin Chewable 81 MG TAB ONE (23:27)
[2024-07-18] MEDS ORDERED: cefTRIAXone (ROCEPHIN) 2 GM VIAL ONE (23:28)
[2024-07-18] MEDS ORDERED: Sodium Chloride 0.9% 100 ML ONE (23:28)
[2024-07-19] MEDS ORDERED: Azithromycin 500 MG VIAL ONE (00:05)
[2024-07-19 00:55] LABS: Bacteria/HPF Rare-Few HPF (None Seen); Bilirubin Negative (Negative); Blood, Urine 2+ (Negative); CAUTI Indications for Culture Dysuria,urgency,freq; Clarity Clear (Clear); Glucose, Urine (Dipstick) Normal (Negative); Ketone, Urine Negative (Negative); Leukocyte 250 Leu/uL (Negative); Nitrite Negative (Negative); Protein, Urine (Dipstick) Negative (Neg-Trace); RBC/HPF None Seen HPF (0-3); Specific Gravity, Urine 1.006 (1.002-1.036); Squamous Epithelial 0-3 HPF (0-3); Urobilinogen Normal mg/dL (Less than 2); pH, Urine 5.5 (5.0-9.0)
[2024-07-19 00:56] LABS: Urine Culture Reflex No No
[2024-07-19] MEDS ORDERED: Ondansetron PF 4 MG/2 ML Vial IVP PRN (01:52)
[2024-07-19] MEDS ORDERED: Acetaminophen 325 MG TAB PO PRN (01:52)
[2024-07-19 02:56] LABS: %Basophils 1.2 % (0.0-1.0); %Eosinophils 4.4 % (0.0-10.0); %Lymphocytes 15.2 % (21.0-51.0); %Monocytes 9.9 % (0.0-10.0); %Neutrophils 68.9 % (42.0-75.0); Hematocrit 43.4 % (36.0-47.0); Hemoglobin 13.1 g/dL (12.0-16.0); Mean Corpuscular HGB CONC 30.2 g/dL (32.0-36.0); Mean Corpuscular Hemoglobin 29.4 pg (27.0-31.0); Mean Corpuscular Volume 97.5 fL (78.0-98.0); Mean Platelet Volume 11.5 fL (7.4-10.4); Platelet Count 219 10x3/uL (130-400); RBC Distribution Width 15.8 % (11.5-14.5); Red Blood Cell (RBC) Count 4.45 mill/uL (4.20-5.40)
[2024-07-19 03:17] LABS: Troponin I 0.038 ng/mL (< 0.028)
[2024-07-19 04:53] VITALS: BMI 31.9
[2024-07-19 05:26] LABS: Anion Gap 18 mmol/L (10-20); BUN (Urea Nitrogen) 19 mg/dL (9.8-20.1); Calc. Creatinine Clearance 68 mL/min (70-130); Calcium 8.8 mg/dL (7.8-10.44); Carbon Dioxide 23 mmol/L (23-31); Chloride 105 mmol/L (98-107); Estimated GFR 71; Glucose 121 mg/dL (83-110); Potassium 4.1 mmol/L (3.5-5.1); Sodium 142 mmol/L (136-145)
[2024-07-19] MEDS ORDERED: Levothyroxine Sodium 75 MCG TAB ONE (06:02)
[2024-07-19] MEDS ORDERED: Furosemide 40 MG (4 mL) VIAL ONE ×2 (06:02→14:21)
[2024-07-19] MEDS: Furosemide 40 MG (4 mL) VIAL SLOW IVP SCH (06:10)
[2024-07-19] MEDS: Levothyroxine 150 MCG TAB PO SCH (06:10)
[2024-07-19 08:07] LABS: Troponin I 0.035 ng/mL (< 0.028)
[2024-07-19] MEDS ORDERED: Aspirin Chewable 81 MG TAB ONE (08:51)
[2024-07-19] MEDS ORDERED: diphenhydrAMINE 25 MG CAP ONE (08:51)
[2024-07-19] MEDS ORDERED: Clopidogrel Bisulfate 75 MG TAB ONE (08:51)
[2024-07-19] MEDS ORDERED: Pregabalin 75 MG CAP ONE ×2 (08:53→14:45)
[2024-07-19] MEDS: Aspirin 81 mg Enteric Coated Tablet PO SCH (08:58)
[2024-07-19] MEDS: Carvedilol 3.125 MG TAB PO SCH (08:58)
[2024-07-19] MEDS: CeleCOXIB 100 MG CAP PO SCH (08:58)
[2024-07-19] MEDS: Pregabalin 75 MG CAP PO SCH (08:59)
[2024-07-19] MEDS: diphenhydrAMINE 25 MG CAP PO SCH (08:59)
[2024-07-19] MEDS: Pantoprazole DR 40 MG TAB PO SCH (08:59)
[2024-07-19] MEDS: Clopidogrel Bisulfate 75 MG TAB PO SCH (08:59)
[2024-07-19] MEDS: Escitalopram Oxalate 10 mg Tablet PO SCH (08:59)
[2024-07-19] MEDS ORDERED: HYDROcodone/Acetaminophen 10/325 mg Tablet ONE ×2 (09:02→14:46)
[2024-07-19] MEDS: HYDROcodone/Acetaminophen 10/325 mg Tablet PO PRN (09:05)
[2024-07-19] MEDS: Rosuvastatin 20 MG TAB PO SCH (20:03)
[2024-07-19] MEDS: Midodrine HCl 5 MG TAB PO SCH (20:49)
[2024-07-20 04:22] LABS: #Basophils 0.09 10x3/uL (0.0-0.2); %Eosinophils 4.9 % (0.0-10.0); %Lymphocytes 16.8 % (21.0-51.0); Hematocrit 43.9 % (36.0-47.0); Hemoglobin 13.6 g/dL (12.0-16.0); Mean Corpuscular Hemoglobin 29.4 pg (27.0-31.0); Mean Corpuscular Volume 94.8 fL (78.0-98.0); Mean Platelet Volume 11.9 fL (7.4-10.4); Platelet Count 228 10x3/uL (130-400); RBC Distribution Width 15.9 % (11.5-14.5); Red Blood Cell (RBC) Count 4.63 mill/uL (4.20-5.40)
[2024-07-20 04:43] LABS: Anion Gap 13 mmol/L (10-20); BUN (Urea Nitrogen) 26 mg/dL (9.8-20.1); Calc. Creatinine Clearance 47 mL/min (70-130); Carbon Dioxide 28 mmol/L (23-31); Chloride 99 mmol/L (98-107); Estimated GFR 45; Glucose 135 mg/dL (83-110); Potassium 3.7 mmol/L (3.5-5.1); Sodium 136 mmol/L (136-145)
[2024-07-20] MEDS: Ferrous Sulfate 325 MG TAB PO SCH (09:14)
[2024-07-20] MEDS: Lisinopril 2.5 MG TAB PO SCH (09:21)
[2024-07-20] MEDS: Furosemide 20 MG (2 mL) VIAL SLOW IVP SCH (14:08)
[2024-07-20] MEDS: diphenhydrAMINE 25 MG CAP PO SCH (21:18)
[2024-07-21] MEDS: Benzonatate 100 MG CAP PO PRN (03:33)
[2024-07-21 04:26] LABS: #Basophils 0.07 10x3/uL (0.0-0.2); %Basophils 0.8 % (0.0-1.0); %Eosinophils 4.6 % (0.0-10.0); %Lymphocytes 18.8 % (21.0-51.0); %Monocytes 9.7 % (0.0-10.0); %Neutrophils 65.9 % (42.0-75.0); Hematocrit 44.5 % (36.0-47.0); Hemoglobin 13.6 g/dL (12.0-16.0); Mean Corpuscular HGB CONC 30.6 g/dL (32.0-36.0); Mean Corpuscular Hemoglobin 28.6 pg (27.0-31.0); Mean Corpuscular Volume 93.7 fL (78.0-98.0); Mean Platelet Volume 11.3 fL (7.4-10.4); Platelet Count 248 10x3/uL (130-400); RBC Distribution Width 15.7 % (11.5-14.5); Red Blood Cell (RBC) Count 4.75 mill/uL (4.20-5.40)
[2024-07-21 04:37] LABS: Anion Gap 16 mmol/L (10-20); BUN (Urea Nitrogen) 28 mg/dL (9.8-20.1); Calc. Creatinine Clearance 56 mL/min (70-130); Calcium 8.8 mg/dL (7.8-10.44); Carbon Dioxide 25 mmol/L (23-31); Chloride 101 mmol/L (98-107); Estimated GFR 55; Glucose 106 mg/dL (83-110); Potassium 4.3 mmol/L (3.5-5.1); Sodium 138 mmol/L (136-145)
[2024-07-22 04:22] LABS: %Basophils 1.1 % (0.0-1.0); %Eosinophils 4.3 % (0.0-10.0); %Lymphocytes 15.4 % (21.0-51.0); %Monocytes 9.1 % (0.0-10.0); %Neutrophils 69.8 % (42.0-75.0); Hematocrit 43.7 % (36.0-47.0); Hemoglobin 13.3 g/dL (12.0-16.0); Mean Corpuscular HGB CONC 30.4 g/dL (32.0-36.0); Mean Corpuscular Hemoglobin 29.5 pg (27.0-31.0); Mean Corpuscular Volume 96.9 fL (78.0-98.0); Mean Platelet Volume 11.9 fL (7.4-10.4); Platelet Count 255 10x3/uL (130-400); RBC Distribution Width 15.4 % (11.5-14.5); Red Blood Cell (RBC) Count 4.51 mill/uL (4.20-5.40)
[2024-07-22 04:52] LABS: Anion Gap 16 mmol/L (10-20); BUN (Urea Nitrogen) 30 mg/dL (9.8-20.1); Calc. Creatinine Clearance 56 mL/min (70-130); Calcium 8.7 mg/dL (7.8-10.44); Carbon Dioxide 26 mmol/L (23-31); Chloride 102 mmol/L (98-107); Estimated GFR 54; Glucose 130 mg/dL (83-110); Potassium 4.2 mmol/L (3.5-5.1); Sodium 140 mmol/L (136-145)
[2024-07-22 11:22] VITALS: BP 115/79; TEMP 98
== END 2024-07-22 12:52 | disposition home or self-care (01) | DRG 291 ==
LOC: ERS 19:00 → ERHOLD 07-19 01:09 → PCU 07-19 18:18
PROVIDERS: ADMIT Internal Medicine; ATTEND Internal Medicine
DX: I11.0 Hypertensive heart disease with heart failure (principal); I50.23 Acute on chronic systolic (congestive) heart failure; J96.01 Acute respiratory failure with hypoxia; I24.89 Other forms of acute ischemic heart disease; I25.2 Old myocardial infarction; I48.91 Unspecified atrial fibrillation; E78.5 Hyperlipidemia, unspecified; I25.10 Atherosclerotic heart disease of native coronary artery without angina pectoris; E03.9 Hypothyroidism, unspecified; Z79.82 Long term (current) use of aspirin; Z79.899 Other long term (current) drug therapy; J44.9 Chronic obstructive pulmonary disease, unspecified; Z88.8 Allergy status to other drugs, medicaments and biological substances; Z90.49 Acquired absence of other specified parts of digestive tract; Z90.710 Acquired absence of both cervix and uterus; Z98.890 Other specified postprocedural states
CPT/HCPCS: 36415; 70450; 71045; 71275; 80048; 80053; 81001; 83880; 84484; 85025; 85379; 93005; 94760; 96365; 96367; 96375; J0456; J0696; J1940

== ENCOUNTER 2024-07-27 08:24 | Outpatient (CLI) | payer MEDICARE ==
[2024-07-27 10:05] LABS: #Basophils 0.08 10x3/uL (0.0-0.2); %Basophils 0.7 % (0.0-1.0); %Eosinophils 2.4 % (0.0-10.0); %Lymphocytes 17.4 % (21.0-51.0); %Neutrophils 70.2 % (42.0-75.0); Hematocrit 47.2 % (36.0-47.0); Hemoglobin 14.8 g/dL (12.0-16.0); Mean Corpuscular HGB CONC 31.4 g/dL (32.0-36.0); Mean Corpuscular Hemoglobin 28.8 pg (27.0-31.0); Mean Platelet Volume 11.9 fL (7.4-10.4); Platelet Count 281 10x3/uL (130-400); RBC Distribution Width 14.8 % (11.5-14.5); Red Blood Cell (RBC) Count 5.13 mill/uL (4.20-5.40)
[2024-07-27 10:21] LABS: Anion Gap 15 mmol/L (10-20); BUN (Urea Nitrogen) 28 mg/dL (9.8-20.1); Calc. Creatinine Clearance 0 mL/min (70-130); Carbon Dioxide 23 mmol/L (23-31); Chloride 106 mmol/L (98-107); Estimated GFR 69; Glucose 102 mg/dL (83-110); Potassium 4.2 mmol/L (3.5-5.1); Sodium 140 mmol/L (136-145)
[2024-07-27 10:28] LABS: INR-International Normal Ratio 1.1; PTT 28.5 sec (22.9-36.1)
== END 2024-07-27 08:25 | disposition home or self-care (01) ==
LOC: LABBT 08:24
PROVIDERS: ATTEND Internal Medicine Cardiovascular Disease
DX: Z01.812 Encounter for preprocedural laboratory examination (principal); I48.0 Paroxysmal atrial fibrillation
CPT/HCPCS: 80048; 85025; 85610; 85730

== ENCOUNTER 2024-07-29 07:03 | Day surgery (SDC) | payer MEDICARE ==
[2024-07-27 09:18] VITALS: BMI 32.5
[2024-07-29] MEDS ORDERED: Midazolam HCl 2 mg/2 ml Vial ONE (09:48)
[2024-07-29] MEDS ORDERED: fentaNYL 50 mcg/mL 1 mL Vial ONE (09:48)
[2024-07-29] MEDS ORDERED: ePHEDrine Sulfate 50 MG/10 ML VIAL ONE (10:00)
[2024-07-29] MEDS ORDERED: Etomidate 40 MG (20 mL) VIAL ONE (10:00)
== END 2024-07-29 11:15 | disposition home or self-care (01) ==
LOC: SDC 07:03
PROVIDERS: ATTEND Internal Medicine Cardiovascular Disease
PROC: B24BZZ4 Ultrasonography of Heart with Aorta, Transesophageal (ICD-10-PCS; principal; 2024-07-29)
DX: I48.19 Other persistent atrial fibrillation (principal); Z95.818 Presence of other cardiac implants and grafts; Z88.8 Allergy status to other drugs, medicaments and biological substances; Z79.82 Long term (current) use of aspirin; Z79.02 Long term (current) use of antithrombotics/antiplatelets; Z79.899 Other long term (current) drug therapy
CPT/HCPCS: 93312; J2250; J3010